=== PATIENT | male | born 1955 | race Caucasian/White ===

== ENCOUNTER 2023-09-26 10:55 | Inpatient (IN) ==
[2023-09-26 11:47] LABS: Basophils # (auto) 0.01 K/uL (0.00-0.20); Basophils % (auto) 0.1 %; Eosinophils # (auto) 0.01 K/uL (0.00-0.50); Eosinophils % (auto) 0.1 %; Hematocrit (blood only) 41.5 % (42.0-52.0); Hemoglobin 13.9 g/dl (14.0-18.0); Immature Granulocytes # (auto) 0.05 K/uL (0.01-0.20); Immature Granulocytes % (auto) 0.4 %; Lymphocytes # (auto) 0.59 K/uL (1.20-3.40); Lymphocytes % (auto) 4.8 %; Mean Corpuscular Hemoglobin 29.4 pg (25.0-34.0); Mean Corpuscular Hgb Conc 33.5 g/dL (32.0-36.0); Mean Corpuscular Volume 87.9 fL (80.0-100.0); Mean Platelet Volume 9.9 fL (9.4-12.4); Monocytes # (auto) 0.85 K/uL (0.11-0.59); Monocytes % (auto) 6.9 %; Neutrophils # (auto) 10.73 K/uL (1.40-6.50); Neutrophils % (auto) 87.7 %; Platelet Count 274 K/uL (130-400); RDW Coefficient of Variation 13.7 % (11.5-14.5); Red Blood Count 4.72 M/uL (4.70-6.10); White Blood Count 12.24 K/ul (4.8-10.8)
--- NOTE | 2023-09-26 12:00 | XRay Report ---
XR chest 1V not portable HISTORY: Chest pain, nonspecific COMPARISON: Chest 09/24/2023. FINDINGS: No pneumothorax. No pleural effusions. The heart remains top normal in size. The left lung is clear. Elevated right hemidiaphragm and right basilar linear densities persist. This favors subseg mental atelectasis. No new focal lung consolidations to suggest a pneumonia. No evidence for pulmonar y edema. No acute fractures. IMPRESSION: No significant change compared to the prior study. No acute process. ACT 112: Negative or not required by law. Electronically signed by: Jarrett Bustos M.D. 09/26/2023 11:59 AM
[2023-09-26 12:11] LABS: Partial Thromboplastin Time 27 Seconds (21-31); Prothrombin Time 10.7 Seconds (9.0-12.0)
[2023-09-26 12:28] LABS: Albumin Level 4.4 gm/dl (3.4-5.0); Calcium 9.8 mg/dl (8.6-10.3); Potassium 4.2 mmol/L (3.5-5.1); Troponin I High Sensitivity 11.9 pg/ml (0-20)
[2023-09-26 12:39] LABS: Albumin Globulin Ratio 1.2 (0.9-2); BUN Creatinine Ratio 17.8 (10-20); Creatinine Clr Calc Pharmacy 31.1 ml/min; Est GFR (African American) 37.6 ml/min; Est GFR (Non-African American) 32.4 ml/min; Globulin 3.7 gm/dl (2.5-4.0); Total Protein 8.1 gm/dl (6.0-8.3)
--- NOTE | 2023-09-26 13:25 | Emergency Department Note ---
Impression & Plan RSV (respiratory syncytial virus infection), Chronic kidney disease, stage III (moderate), Hyponatremia, Cough ED Provider Note Provider: Stan Owens MD DATE OF SERVICE: 09/26/2023 CHIEF COMPLAINT: Worsening cough and breathing HISTORY OF PRESENT ILLNESS: Patient is a 68-year-old gentleman history of hyperlipidemia, CKD, and hypertension presenting here today with son reporting worsening cough and breathing over the last several days. Initially became ill over the weekend. Seen here on Monday given steroids and breathing treatment and diagnosed with RSV. Was having improvement. Reporting some pain around his belly with coughing. Some nasal congestion and drainage. Short of breath particular when ambulating or talking for a period. No swelling reported. And does not have any inhalers at home. Worsening over the last day. Denies nausea vomiting. Denies fever. Only able to sleep a couple hours last night due to hacking cough. Using some Mucinex as well as other [id number]'s including acetaminophen. Has been trying to drink some. Follows with nephrology. PAST MEDICAL HISTORY: As noted above MEDICATIONS: Reviewed home medications SOCIAL HISTORY: Non-smoker PHYSICAL EXAM: GENERAL: alert and oriented in no acute distress in chair coughing, some adjacent Head: normocephalic and atraumatic EYES: No injection, discharge or icterus. NECK: Trachea midline. Supple. ENT: Mucous membranes pink and moist. LUNGS: Airway patent. No retractions. Breath sounds scattered wheezes, occasionally coughing HEART: Regular rate and rhythm. No chest wall tenderness ABDOMEN: Soft and non-tender, without guarding or rebound. SKIN: Acyanotic, warm, dry, without rashes EXTREMITIES: Without swelling, tenderness or deformity NEUROLOGICAL: No focal deficits. No aphasia. No facial droop or slurred speech. Ambulatory. EK bpm normal sinus rhythm. No PVC or PAC. No acute ST segment elevation or depression with a QTc of 420. Nonspecific slight ST change CONTINUOUS CARDIAC MONITORING: was ordered and showed a heart rate of 60s-80s bpm in normal sinus rhythm Patient's laboratory studies and imaging reviewed. Differential includes Reactive airway disease, pneumonia, pneumothorax, COPD, CHF, infections, cardiac ischemia, pulmonary embolism, musculoskeletal, gastrointestinal, as well as other pathologies. IMPRESSION/MEDICAL DECISION MAKING: Patient diagnosed with RSV with some worsening symptoms. Chest x-ray without evidence of pneumonia. Leukocytosis slightly increased to 12.2 likely more reactive to steroids than pneumonia. Worsening hyponatremia 125 this new today as well as slight anion gap and a creatinine of 2 and a BUN of 36. Question some component of dehydration. Troponin also increased to 11.9 from the 6.5 the other day is still within the normal range. Doubt this represents ACS. EKG reviewed. Doubt PE. Not severely hypoxic. Significant cough and some pressured speech having difficulty completing sentences due to his cough and breathing however. Wheezy. Given DuoNeb. Additional steroids. Will give the Hycodan to help with cough. Doubt PHD INTERN or meningitis. Doubt strep pharyngitis. Believe likely viral illness. Doubt this represents CHF. Discussed with the patient given his worsening with worsening chemistries/renal function/hyponatremia would recommend that we observe him rather than just discharged with an inhaler and a course of steroids. Discussion with him and his son he wished to stay for further evaluation. DIAGNOSIS: RSV, cough, hyponatremia DISPOSITION: Hospitalist will evaluate Patient was agreeable with this plan. Past Med/Surg History Medical History Tricuspid regurgitation Aortic stenosis, moderate Overweight (BMI 25.0-29.9) Visual impairment Hypertension Sleep apnea Surgical History History of cataract surgery Hx of eye surgery Hx of vitrectomy History of tooth extraction Family History Other No significant family history Social History Smoking Status: Never smoker Second Hand Exposure: No; Do You Dip or Chew Tobacco: No; Hx Alcohol Use: No Hx Substance Use: No Preferred Language: Amharic Communication Ability: Effective Communication Ability Comment: some visual impairment Visual Impairment: Limited Hearing Ability: Normal Manager Process Required: No Beliefs That Will Affect Care: None marital status: Current Living Situation: Alone current occupational status: retired Feels Safe at Home: Yes Diet: regular caffeine: Yes (2-3 cups coffee daily) Do you think of yourself as: straight/heterosexual Gender Identity: Male Assistive Devices: Glasses Allergies Allergies Allergy/AdvReac Type Severity Reaction Status Date / Time No Known Allergies Allergy Verified 09/24/23 19:02 Home Meds Home Medications Medication Instructions Recorded Confirmed olmesartan 40 mg tablet 40 mg PO QAM 03/04/21 09/24/23 spironolactone 25 mg tablet 25 mg PO BID 03/04/21 09/24/23 coenzyme Q10 200 mg capsule 200 mg PO QAM 11/23/21 09/24/23 pravastatin 20 mg tablet 40 mg PO HS 01/13/23 09/24/23 ezetimibe 10 mg tablet 10 mg PO DAILY 09/24/23 09/24/23 pantoprazole 40 mg tablet,delayed 40 mg PO BID 09/24/23 09/24/23 release Previous Rx's Medication Instructions Recorded furosemide 20 mg tablet 20 mg PO QAM #90 tabs 04/04/22 nifedipine 60 mg tablet,extended 60 mg PO DAILY #90 tabs 01/13/23 release cholecalciferol (vitamin D3) 25 25 mcg PO QAM #90 caps 02/21/23 mcg (1,000 unit) capsule Results & Data (ED) Vital Signs Vital Signs - 24 hr 09/26/23 10:59 09/26/23 13:33 09/26/23 14:14 Temperature 36.5 C Temperature Source Temporal Artery Scan Pulse Rate 90 Pulse Rate [Right Finger] 68 105 H Pulse Rhythm Regular Pulse Rhythm [Right Finger] Regular Pulse Strength Normal Pulse Strength [Right Finger] Normal Respiratory Rate 22 18 22 Respiratory Effort / Characteristics Non-Labored Spontaneous Non-Labored Respiratory Depth Normal Normal Respiratory Pattern Regular Blood Pressure 159/75 H Blood Pressure [Left Arm] 137/68 Blood Pressure Mean 103 Blood Pressure Mean [Left Arm] 91 Blood Pressure Position Sitting Pulse Oximetry 96 93 99 Oxygen Delivery Method Room Air Room Air Aerosol Mask Sepsis Recent Fever Within 48 Hours No Sepsis New/Unexplained Change in Mental Status No Sepsis Action Taken by Nursing No Action Required 09/26/23 14:29 Temperature Temperature Source Pulse Rate 107 H Pulse Rate [Right Finger] Pulse Rhythm Pulse Rhythm [Right Finger] Pulse Strength Pulse Strength [Right Finger] Respiratory Rate Respiratory Effort / Characteristics Respiratory Depth Respiratory Pattern Blood Pressure Blood Pressure [Left Arm] Blood Pressure Mean Blood Pressure Mean [Left Arm] Blood Pressure Position Pulse Oximetry Oxygen Delivery Method Sepsis Recent Fever Within 48 Hours Sepsis New/Unexplained Change in Mental Status Sepsis Action Taken by Nursing Laboratory Data 09/26/23 11:12 09/26/23 11:12 Lab Results 09/26/23 Range/Units 11:12 WBC 12.24 H (4.8-10.8) K/ul RBC 4.72 (4.70-6.10) M/uL Hgb 13.9 L (14.0-18.0) g/dl Hct 41.5 L (42.0-52.0) % MCV 87.9 (80.0-100.0) fL MCH 29.4 (25.0-34.0) pg MCHC 33.5 (32.0-36.0) g/dL RDW Std Deviation 44.0 (36.4-46.3) fL RDW Coeff of Anju 13.7 (11.5-14.5) % Plt Count 274 (130-400) K/uL MPV 9.9 (9.4-12.4) fL Immature Gran % (Auto) 0.4 % Neut % (Auto) 87.7 % Lymph % (Auto) 4.8 % Spencer % (Auto) 6.9 % Eos % (Auto) 0.1 % Baso % (Auto) 0.1 % Neut # (Auto) 10.73 H (1.40-6.50) K/uL Lymph # (Auto) 0.59 L (1.20-3.40) K/uL Spencer # (Auto) 0.85 H (0.11-0.59) K/uL Eos # (Auto) 0.01 (0.00-0.50) K/uL Baso # (Auto) 0.01 (0.00-0.20) K/uL Immature Gran # (Auto) 0.05 (0.01-0.20) K/uL PT 10.7 (9.0-12.0) Seconds INR 1.0 (0.9-1.1) APTT 27 (21-31) Seconds PTT Ratio 1.0 Sodium 125 L (136-145) mmol/L Potassium 4.2 (3.5-5.1) mmol/L Chloride 91 L (98-107) mmol/L Carbon Dioxide 19 L (21-32) mmol/L Anion Gap 15 H (3-11) BUN 36 H D (6-23) mg/dl Creatinine 2.02 H D (0.6-1.4) mg/dl Est Cr Clr Drug Dosing 31.1 ml/min Est GFR ( Amer) 37.6 ml/min Est GFR (Non-Af Amer) 32.4 ml/min BUN/Creatinine Ratio 17.8 (10-20) Glucose 96 (70-99(Fasting)) mg/dl Calcium 9.8 (8.6-10.3) mg/dl Total Bilirubin 1.0 (0.2-1.0) mg/dl AST 137 H (13-39) U/L ALT 47 (7-52) U/L Alkaline Phosphatase 66 (34-104) U/L Troponin I High Sens 11.9 D (0-20) pg/ml Total Protein 8.1 (6.0-8.3) gm/dl Albumin 4.4 (3.4-5.0) gm/dl Globulin 3.7 (2.5-4.0) gm/dl Albumin/Globulin Ratio 1.2 (0.9-2) Administered Medications Sodium Chloride (Nss) 1,000 mls @ 999 mls/hr IV .Q1H1M ONE Stop: 09/26/23 14:19 Last Admin: 09/26/23 14:11 Dose: 999 mls/hr Documented By: [facility] Discontinued Medications Albuterol (Albut/Ipratrop 3mg/0.5mg Neb 3 Ml Vial) 12 ml NEB ONE ONE; Protocol Stop: 09/26/23 13:20 Last Admin: 09/26/23 13:32 Dose: 12 ml Documented By: [facility] Hydrocodone Bit/Homatropine Methylb (Hydrocodone/Homatropine Syrup 5mg/1.5mg 5ml Udp) 5 ml PO NOW STA Stop: 09/26/23 13:20 Last Admin: 09/26/23 14:12 Dose: 5 ml Documented By: [facility] Methylprednisolone (Methylprednisolone 125 Mg/2 Ml Vial) 60 mg IV NOW STA Stop: 09/26/23 13:20 Last Admin: 09/26/23 14:11 Dose: 60 mg Documented By: [facility] Imaging Data Radiologist's Impression: Chest X-Ray 09/26/23 11:02 XR chest 1V not portable HISTORY: Chest pain, nonspecific COMPARISON: Chest 09/24/2023. FINDINGS: No pneumothorax. No pleural effusions. The heart remains top normal in size. The left lung is clear. Elevated right hemidiaphragm and right basilar linear densities persist. This favors subsegmental atelectasis. No new focal lung consolidations to suggest a pneumonia. No evidence for pulmonary edema. No acute fractures. IMPRESSION: No significant change compared to the prior study. No acute process. ACT 112: Negative or not required by law. Electronically signed by: Jarrett Bustos M.D. 09/26/2023 11:59 AM Discharge Plan Visit Data Chief Complaint: Referred by Doctor Stated Complaint: respiratory problems ref by doc ED Provider: Stna Owens Discharge Problem: RSV (respiratory syncytial virus infection), Chronic kidney disease, stage III (moderate), Hyponatremia, Cough Patient Disposition: Being Evaluated by Hospitalist Condition: Fair Forms Stand Alone Forms: My [employer] Prescriptions Prescriptions: No Action furosemide 20 mg tablet 20 mg PO QAM Qty: 90 3RF cholecalciferol (vitamin D3) 25 mcg (1,000 unit) capsule 25 mcg PO QAM Qty: 90 3RF nifedipine 60 mg tablet extended release 60 mg PO DAILY Qty: 90 3RF olmesartan 40 mg tablet 40 mg PO QAM spironolactone 25 mg tablet 25 mg PO BID pravastatin 20 mg tablet 40 mg PO HS coenzyme Q10 200 mg capsule 200 mg PO QAM pantoprazole 40 mg tablet,delayed release (DR/EC) 40 mg PO BID ezetimibe 10 mg tablet 10 mg PO DAILY Referrals Referrals: PCP,NO [Physician] -
[2023-09-26] MEDS: ALBUT/IPRATROP 3MG/0.5MG NEB 3 ML VIAL NEB ONE (13:32)
[2023-09-26] MEDS: methylPREDNISolone 125 MG/2 ML VIAL IV STA (14:11)
[2023-09-26] MEDS: SODIUM CHLORIDE 0.9% 1,000 ML IV ONE (14:11)
[2023-09-26] MEDS: HYDROcodone/HOMATROPINE SYRUP 5MG/1.5MG 5ML UDP PO STA (14:12)
--- NOTE | 2023-09-26 14:19 | History & Physical Report ---
Date of Service September 26, 2023 Assessment & Plan (1) Reactive airway disease: Plan: -Admit to med/surge on pulse oximetry -Currently hemodynamically stable and stable on RA but with mild respiratory distress and significant wheezing -Presented to the ED for progressive cough, wheezing, and SOB with exertion since testing positive for RSV in our ED on 09/24 -CXR today is negative for acute findings -Noted to have significant cough and expiratory wheezing on exam -Denies previous hx of Asthma or COPD, was a previous smoker approximately 30 years ago -S/P 60 mg IV methylprednisolone, hour long duoneb, and dose of hycoden in the ED -Will start QIDr DuoNebs, continue 40 mg IV Solu-Medrol TID for now, incentive spirometry, flutter therapy -Will obtain mag level, if stable will give 2gm IV mag sulfate -PRN O2 to keep SpO2 between 92-94% -SQ Heparin for DVT PPX -HH diet, free water restriction until sodium is stable -AM CBC, CMP (2) RSV (respiratory syncytial virus infection): Plan: -See reactive airway disease (3) High anion gap metabolic acidosis: Plan: -AG elevated at 15 with bicarb of 19 -Noted to be dehydrated on exam but otherwise stable -Denies recent alcohol use -Will obtain stat lactate level -Will monitor q4h BMP x 2 over the rest of the day -Will wait to aggressively fluid resuscitate until his hyponatremia workup is back as he is otherwise stable (4) Hyponatremia: Plan: -Sodium noted to be 125 on arrival -Baseline is usually in the low-mid 130's -Likely due to dehydration and continued diuretic use during acute illness -Cannot rule out intrinsic cause at this time -S/P 1L NSS in the ED -Will follow workup started in the ED and repeat BMP's -Will continue IV hydration if workup necessitates -Monitor am renal function and electrolytes -Hold diuretics for now (5) Acute kidney injury superimposed on CKD: Plan: -Cr of 2.0 today, baseline is 1.7-1.8 -Likely due to dehydration and recent NSAID use but cannot rule out obstruction with his recent hx of obstruction -Will obtain bladder scan on admission -If renal function is not improving on repeat BMP will obtain renal US -S/P 1L NSS in the (6) Hypertension: Plan: -Stable -Hold Olmesartan, lasix, and lasix for now with dehydration and WILFREDO -Continue Nifedipine (7) Sleep apnea: Plan: -Patient reportedly has not used his CPAP machine in years -Monitor for HS hypoxia -PRN O2 ordered Plan The patient was discussed with Dr. Torres at the time of the admission History of Present Illness Chief Complaint: Cough, SOB Primary Care Provider: Harish Retana DO Joe is a 68 year old male with a PMH significant for HTN, stage 3 CKD, chronic hyponatremia, aortic stenosis, and GERD who presented to the [facility] ED on 09/26/23 for progressive cough and SOB. He remained stable in the ED. Labs were significant for a leukocytosis of 12 with neutrophil predominance of 10, lymphocyte count of 0.59, Cr of 2.0 (baseline is near 1.5-1.7), BUN of 36, AG of 15 with bicarb of 19, chloride of 91, sodium of 125 (normally in the low-mid 130's), AST of 137. The patient was seen in the [facility] ED on 09/24 for respiratory symptoms and tested positive for RSV. His labs and imaging were WNL and he was discharged home. CXR was stable and without acute findings compared to last on 09/24. Prior to admission the patient was given an hour long albuterol treatment, 60 mg IV methylprednisolone, and 1L NSS. At the time of the exam the patient was sitting in bed in mild distress due to his severe cough with his son sitting bedside, history was obtained from both. They confirm that he was seen in the [facility] ED for his respiratory symptoms on 09/24 and tested positive for RSV. He states that the breathing treatment he received in the ED helped at that time but he was not discharged with any breathing treatments. He was using OTC Guaifenesin, Tylenol, and Ibuprofen for his symptoms at home without relief. He has had poor oral intake over the past 48 hours since his symptoms began but has still been taking his prescription medications including lasix and spironolactone as prescribed. He denies recent chest pain, SOB and rest, hemoptysis, abd pain, nausea, vomiting, diarrhea, dysuria, hematuria, LE swelling, and recent trauma. He states that his prescription for Flomax ran out recently so he has been having increased urinary frequency. He is a full code and would want his son to make medical decisions for him if he cannot make them himself. Please refer to Dr. Torres's attestation for any changes to the treatment plan Allergies Allergy/AdvReac Type Severity Reaction Status Date / Time No Known Allergies Allergy Verified 09/24/23 19:02 Home Medications Medication Instructions Recorded Confirmed Type olmesartan 40 mg tablet 40 mg PO QAM 03/04/21 09/26/23 History spironolactone 25 mg tablet 25 mg PO BID 03/04/21 09/26/23 History coenzyme Q10 200 mg capsule 200 mg PO QAM 11/23/21 09/26/23 History furosemide 20 mg tablet 20 mg PO QAM #90 tabs 04/04/22 09/26/23 Rx nifedipine 60 mg tablet,extended 60 mg PO DAILY #90 tabs 01/13/23 09/26/23 Rx release cholecalciferol (vitamin D3) 25 25 mcg PO QAM #90 caps 02/21/23 09/26/23 Rx mcg (1,000 unit) capsule pantoprazole 40 mg tablet,delayed 40 mg PO BID 09/24/23 09/26/23 History release pravastatin 40 mg tablet 40 mg PO HS 09/26/23 09/26/23 History Past Med/Surg History Medical History (Updated 09/26/23 @ 14:57 by Eric Gasca PA-C) Tricuspid regurgitation Aortic stenosis, moderate KMI 1.4 cm2 01/06/20 - follows [facility] - 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 Overweight (BMI 25.0-29.9) Visual impairment "BLACK HOLE RT EYE" Hypertension Sleep apnea hasn't used CPAP for year Surgical History History of cataract surgery right Hx of eye surgery right eye black hole Hx of vitrectomy left History of tooth extraction Family History Other No significant family history Social History Smoking Status: Never smoker Second Hand Exposure: No; Do You Dip or Chew Tobacco: No; Hx Alcohol Use: No Hx Substance Use: No Preferred Language: Greek Communication Ability: Effective Communication Ability Comment: some visual impairment Visual Impairment: Limited Hearing Ability: Normal 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 Arts Required: No Beliefs That Will Affect Care: None marital status: Current Living Situation: Alone current occupational status: retired Feels Safe at Home: Yes Diet: regular caffeine: Yes (2-3 cups coffee daily) Do you think of yourself as: straight/heterosexual Gender Identity: Male Assistive Devices: Glasses Physical Exam Physical Exam: Physical Exam: General: In mild distress due to cough, stated age, ill appearing but non- toxic HEENT: Normocephalic, atraumatic, no scleral icterus, pupils around round, symmetrical, and reactive to light, dry mucus membranes, trachea midline, no thyromegaly Chest/Pulm: mild respiratory distress due to significant cough and wheezing, symmetrical chest expansion, expiratory wheezing noted throughout Cardiac: RRR, no murmurs noted Abdomen: Negative for ascites and bruising, normoactive bowel sounds, soft, non-tender to palpation throughout Musculoskeletal: Symmetrical and without signs of acute trauma, upper and lower extremities with full ROM, no atrophy, spasticity, or flaccidity Extremities: Radial, dorsalis pedis, and posterior tibial pulses are intact and symmetrical, no edema noted in the BL LE's Skin: Warm, dry, no rashes , lesions, or scars noted Neuro: Alert and oriented to person, place, month, year, and president, no focal defects, no tremors noted Psych: mild distress due to respiratory symptoms but otherwise calm and cooperative during the exam Results & Data Results & Data Vital Signs (Past 12 Hours) Vital Signs Temp Pulse Pulse Resp BP Pulse Ox O2 Del Method 09/26/23 13:33 68 18 93 Room Air 09/26/23 10:59 36.5 C 90 22 159/75 H 96 Room Air Laboratory Results Abnormal lab results 09/26/23 Range/Units 11:12 WBC 12.24 H (4.8-10.8) K/ul Hgb 13.9 L (14.0-18.0) g/dl Hct 41.5 L (42.0-52.0) % Neut # (Auto) 10.73 H (1.40-6.50) K/uL Lymph # (Auto) 0.59 L (1.20-3.40) K/uL Robertson # (Auto) 0.85 H (0.11-0.59) K/uL Sodium 125 L (136-145) mmol/L Chloride 91 L (98-107) mmol/L Carbon Dioxide 19 L (21-32) mmol/L Anion Gap 15 H (3-11) BUN 36 H D (6-23) mg/dl Creatinine 2.02 H D (0.6-1.4) mg/dl AST 137 H (13-39) U/L Diagnostic Findings Chest X-Ray 09/26/23 11:02 XR chest 1V not portable HISTORY: Chest pain, nonspecific COMPARISON: Chest 09/24/2023. FINDINGS: No pneumothorax. No pleural effusions. The heart remains top normal in size. The left lung is clear. Elevated right hemidiaphragm and right basilar linear densities persist. This favors subsegmental atelectasis. No new focal lung consolidations to suggest a pneumonia. No evidence for pulmonary edema. No acute fractures. IMPRESSION: No significant change compared to the prior study. No acute process. ACT 112: Negative or not required by law. Electronically signed by: Jarrett Bustos M.D. 09/26/2023 11:59 AM ECG Additional Comments: Normal sinus rhythm Nonspecific ST abnormality Abnormal ECG When compared with ECG of 24-SEP-2023 15:25, No significant change was found Confirmed by Chiki Gee ([id number]) on 09/26/2023 11:20:18 AM Code Status & VTE Plan Code Status Full code VTE Prophylaxis Plan VTE Prophylaxis will be ordered: Yes Supervising Physician Co-Signing Physician Notes Patient seen and examined, chart reviewed, case discussed with Eric Gasca PA-C and I agree with the assessment and plan as above except as otherwise noted Labs and images reviewed 68-year-old male with past medical history of CKD, chronic hyponatremia, aortic stenosis, GERD who presents with cough, shortness of breath, and bilateral lower rib pain from continuous coughing. He was recently positive for RSV. Patient reports he has had significant shortness of breath and wheezing since returning home, breathing treatment in the ER did help initially but shortness of breath and wheezing have returned and worsened. He is seen at bedside and has diffuse expiratory wheezing and coarse lung sounds. Chest x-ray does not show any acute findings and specifically no findings of superimposed lobar pneumonia. Patient is improving following nebulizer and steroids. Agree with treatment as above. Patient was volume contracted appearing with an WILFREDO and tachycardia on admitting assessment. Lactate ordered and was elevated at 3.2. Patient has a history of EF 65% with grade 1 diastolic dysfunction; does not show signs of overt fluid overload at time of admitting assessment. Additional 1000 cc bolus ordered due to elevated lactate, 1600 cc 30 cc/kg met. REpeat lactate is pending. Hypertonic saline added. 2g mag added. Agree with assessment and management above PG Care Time/CCT Total # of Minutes Spent Total Time Spent with Patient: Total time spent is greater than 50% in coordination of care (as documented) at patient's floor/unit and/or counseling patient: C[place] [address] INT INP/OBS CARE 3/75MIN Patient Type Established Medical Decision Making High Complexity Diagnoses Reactive airway disease J45.909 RSV (respiratory syncytial virus infection) B33.8 High anion gap metabolic acidosis E87.29 Hyponatremia E87.1 Acute kidney injury superimposed on CKD N17.9; N18.9 Hypertension I10 Sleep apnea G47.30
[2023-09-26] MEDS: guaiFENesin 600 MG TABCR PO SCH (14:57)
[2023-09-26] MEDS: ALBUT/IPRATROP 3MG/0.5MG NEB 3 ML VIAL NEB SCH (14:57)
[2023-09-26] MEDS: PANTOprazole 40 MG TAB PO STA (14:58)
[2023-09-26 15:39] LABS: Magnesium 1.8 mg/dl (1.7-2.4)
[2023-09-26] MEDS: LACTATED RINGER'S 1,000 ML IV ONE (16:38)
[2023-09-26 17:08] LABS: Appearance Urine Clear (Clear); Bilirubin Urine Negative (Negative); Blood Urine Negative (Negative); Color Urine Yellow; Glucose Urine UA Negative (Negative); Ketones Urine Negative (Negative); Leukocyte Esterase Urine Negative (Negative); Nitrite Urine Negative (Negative); Protein Urine Negative (Negative); Specific Gravity Urine 1.008 (1.000-1.030); Urobilinogen Urine Negative (Negative)
[2023-09-26] MEDS: MAGNESIUM SULFATE / D5W 1 GM/100 ML BAG IV SCH (17:19)
[2023-09-26] MEDS: SODIUM CHLOR 7% 4 ML NEB NEB SCH (18:08)
[2023-09-26 18:28] LABS: BUN Creatinine Ratio 19.1 (10-20); Creatinine Clr Calc Pharmacy 33.4 ml/min; Est GFR (Non-African American) 35.4 ml/min; Potassium 4.4 mmol/L (3.5-5.1)
[2023-09-26 18:43] LABS: Thyroid Stimulating Hormone 3.612 uIu/ml (0.300-4.500)
[2023-09-26] MEDS ORDERED: SODIUM CHLOR 7% 4 ML NEB NEB SCH (19:00)
[2023-09-26] MEDS: SODIUM CHLORIDE 0.9% 1,000 ML IV SCH (19:19)
[2023-09-26] MEDS: PRAVASTATIN SOD 40 MG TAB PO SCH (21:33)
[2023-09-26] MEDS: TAMSULOSIN HCL 0.4 MG CAP PO SCH (21:33)
[2023-09-26] MEDS: PANTOprazole 40 MG TAB PO SCH (21:33)
[2023-09-26] MEDS: HEPARIN SOD 5,000 UNIT/0.5 ML VIAL SQ SCH (21:33)
[2023-09-26 21:42] LABS: Potassium 3.9 mmol/L (3.5-5.1)
[2023-09-26 21:48] LABS: Creatinine Clr Calc Pharmacy 35.1 ml/min; Est GFR (African American) 43.5 ml/min; Est GFR (Non-African American) 37.6 ml/min
[2023-09-27 07:06] LABS: Hematocrit (blood only) 36.7 % (42.0-52.0); Hemoglobin 12.7 g/dl (14.0-18.0); Mean Corpuscular Hemoglobin 30.2 pg (25.0-34.0); Mean Corpuscular Hgb Conc 34.6 g/dL (32.0-36.0); Mean Corpuscular Volume 87.4 fL (80.0-100.0); Mean Platelet Volume 9.5 fL (9.4-12.4); Platelet Count 211 K/uL (130-400); RDW Coefficient of Variation 13.6 % (11.5-14.5); RDW Standard Deviation 43.7 fL (36.4-46.3); White Blood Count 11.87 K/ul (4.8-10.8)
[2023-09-27 07:28] LABS: Immature Granulocytes # (auto) 0.08 K/uL (0.01-0.20); Immature Granulocytes % (auto) 0.7 %; Lymphocytes # (auto) 0.42 K/uL (1.20-3.40); Lymphocytes % (auto) 3.5 %; Monocytes # (auto) 0.63 K/uL (0.11-0.59); Monocytes % (auto) 5.3 %; Neutrophils # (auto) 10.74 K/uL (1.40-6.50); Neutrophils % (auto) 90.5 %
[2023-09-27 07:35] LABS: Albumin Globulin Ratio 1.4 (0.9-2); Albumin Level 4.1 gm/dl (3.4-5.0); BUN Creatinine Ratio 19.3 (10-20); Bilirubin,Total 0.6 mg/dl (0.2-1.0); Calcium 9.2 mg/dl (8.6-10.3); Creatinine Clr Calc Pharmacy 46.6 ml/min; Est GFR (African American) 61.2 ml/min; Est GFR (Non-African American) 52.8 ml/min; Magnesium 2.6 mg/dl (1.7-2.4); Potassium 4.2 mmol/L (3.5-5.1); Total Protein 7.1 gm/dl (6.0-8.3)
[2023-09-27] MEDS: methylPREDNISolone 40 MG in SYRINGE 0 ML IV SCH ×2 (09:33→20:39)
[2023-09-27] MEDS: NIFEdipine EXTENDED REL 30 MG TABCR PO SCH (11:04)
--- NOTE | 2023-09-27 11:46 | Hospitalist Progress Note ---
Date of Service September 27, 2023 Assessment & Plan (1) Reactive airway disease: Plan: Presented w/ progressive cough, wheezing, and SOB with exertion since testing positive for RSV in our ED on 09/24 CXR negative for acute findings but does show chronic significant right hemidiaphragm elevation, no pneumonia Denies previous hx of Asthma or COPD, was a previous smoker approximately 30 years ago Improving but with ongoing wheezing and acute hypoxic respiratory failure-weaned to 2 L nasal cannula Continue IV methylprednisolone but reduce to 40 Mg IV every 12h Continue QID DuoNebs, incentive spirometry, flutter therapy Isolation precautions in place No antibiotics necessary Continue cough syrup and guaifenesin (2) RSV (respiratory syncytial virus infection): Plan: As above (3) Transaminitis: Plan: AST elevated on admission at 137 and improved today to 97 Other LFTs are normal Could be from viral infection versus rhabdo? Check CK Improving (4) High anion gap metabolic acidosis: Plan: -AG elevated at 15 with bicarb of 19 on admission, dehydrated, lactate persistently elevated likely due to hypoxia and perhaps some from dehydration Resolved now after IV fluids Discontinue IV fluids (5) Hyponatremia: Plan: -Sodium noted to be 125 on arrival -Baseline is usually in the low-mid 130's -Likely due to dehydration and continued diuretic use during acute illness Resolved now with IV fluids with normal saline and holding home diuretics DC IV fluids Follow BMP (6) Acute kidney injury superimposed on CKD: Plan: Cr of 2.0 on arrival, baseline is 1.7-1.8 Likely due to dehydration and recent NSAID use but cannot rule out obstruction with his history of enlarged prostate Now improved with IV fluids, creatinine down to 1.3 Started Flomax-needs a prescription on discharge Monitor I's and O's, BMP Continue holding olmesartan, Lasix, and spironolactone (7) Hypertension: Plan: Blood pressures are controlled Continue to hold Olmesartan, lasix, and Spironolactone due to dehydration and WILFREDO -Continue Nifedipine (8) Sleep apnea: Plan: -Patient reportedly has not used his CPAP machine in years -Monitor for HS hypoxia -PRN O2 ordered (9) Aortic stenosis, moderate: Plan: Noted (10) Dysfunctional voiding of urine: Plan: Started Flomax again which she has been without for a year and a half Need prescription at discharge Plan DVT prophylaxis-heparin SQ Disposition-continued stay Admission and Anticipated Discharge Date Admission Date: September 26, 2023 Subjective Patient reports still with a cough and wheezing, I weaned him to 2 L nasal cannula in the room and his pulse ox was 91-92% No diarrhea or constipation, no abdominal pains. He just ate all of his lunch. He complains of urinary frequency for the last year since he was not continued on Flomax by urology after he declined to have a cystoscopy. I reassured him that we restarted it here for him and he was happy about that. Telemetry with sinus tachycardia in the low 100s Physical Exam Constitutional: WD/WN, vitals as above Respiratory: normal respiratory effort and + cough Auscultation: + wheezes (Expiratory on the right side); no crackles and no rhonchi Cardiovascular: Rate/Rhythm: regular rhythm and + tachycardic (Mild) Heart Sounds: + murmur (+ 1/6 SABINO at the RUSB) Extremities: no edema Gastrointestinal (Abdomen): normal bowel sounds, soft, nontender, no hepatosplenomegaly Psychiatric: A+Ox3, euthymic affect Results & Data Results & Data Vital Signs (Past 12 Hours) Vital Signs Pulse Pulse Resp BP BP Pulse Ox O2 Del Method 09/27/23 11:17 95 H 20 93 Nasal Cannula 09/27/23 07:48 85 09/27/23 07:01 86 20 94 Nasal Cannula 09/27/23 05:00 98 H 16 95 09/27/23 04:50 89 19 94 09/27/23 04:40 88 19 95 09/27/23 04:30 94 H 20 93 09/27/23 04:20 97 H 20 93 09/27/23 04:10 107 H 23 93 09/27/23 04:06 106 H 20 09/27/23 03:50 98 H 22 95 09/27/23 03:40 84 20 94 09/27/23 03:30 83 20 95 09/27/23 03:20 86 21 93 09/27/23 03:10 92 H 20 93 09/27/23 03:00 91 H 20 95 09/27/23 02:50 95 H 20 93 09/27/23 02:40 110 H 21 94 09/27/23 02:30 126/71 09/27/23 02:30 98 H 18 93 02/21/24 02:20 93 H 20 95 09/27/23 02:10 96 H 21 94 09/27/23 02:00 131/71 09/27/23 02:00 98 H 24 92 09/27/23 01:50 93 H 21 92 09/27/23 01:40 98 H 23 93 09/27/23 01:31 108 H 25 H 91 09/27/23 01:20 96 H 19 92 09/27/23 01:10 103 H 20 92 09/27/23 01:00 99 H 23 94 09/27/23 01:00 128/78 09/27/23 00:50 106 H 25 H 95 09/27/23 00:40 98 H 22 93 09/27/23 00:30 100 H 18 92 09/27/23 00:30 139/86 09/27/23 00:20 104 H 22 92 09/27/23 00:10 103 H 22 94 09/27/23 00:06 107 H 24 95 09/27/23 00:06 152/83 H 09/27/23 00:04 94 09/27/23 00:00 108 H 18 152/83 H 95 Nasal Cannula 09/26/23 23:50 89 L 09/26/23 23:40 90 O2 Flow Rate 09/27/23 11:17 3 09/27/23 07:48 09/27/23 07:01 3 09/27/23 05:00 09/27/23 04:50 09/27/23 04:40 09/27/23 04:30 09/27/23 04:20 09/27/23 04:10 09/27/23 04:06 09/27/23 03:50 09/27/23 03:40 09/27/23 03:30 09/27/23 03:20 09/27/23 03:10 09/27/23 03:00 09/27/23 02:50 09/27/23 02:40 09/27/23 02:30 09/27/23 02:30 09/27/23 02:20 09/27/23 02:10 09/27/23 02:00 09/27/23 02:00 09/27/23 01:50 09/27/23 01:40 09/27/23 01:31 09/27/23 01:20 09/27/23 01:10 09/27/23 01:00 09/27/23 01:00 09/27/23 00:50 09/27/23 00:40 09/27/23 00:30 09/27/23 00:30 09/27/23 00:20 09/27/23 00:10 09/27/23 00:06 09/27/23 00:06 09/27/23 00:04 09/27/23 00:00 4 09/26/23 23:50 09/26/23 23:40 Laboratory Results CBC, CMP, TSH, urinalysis, lactate all reviewed Diagnostic Findings Chest x-ray image reviewed PG Care Time/CCT Total # of Minutes Spent Total Time Spent with Patient: Total time spent is greater than 50% in coordination of care (as documented) at patient's floor/unit and/or counseling patient: Coding Level of Care Code 24265 SUB INP/OBS CARE 2/35MIN Diagnoses Reactive airway disease J45.909 RSV (respiratory syncytial virus infection) B33.8 Transaminitis R74.01 High anion gap metabolic acidosis E87.29 Hyponatremia E87.1 Acute kidney injury superimposed on CKD N17.9; N18.9 Hypertension I10 Sleep apnea G47.30 Aortic stenosis, moderate I35.0 Dysfunctional voiding of urine N39.8
[2023-09-28] MEDS: HYDROcodone/HOMATROPINE SYRUP 5MG/1.5MG 5ML UDP PO PRN (03:30)
[2023-09-28] MEDS: ACETAMINOPHEN 325 MG TAB PO PRN (06:11)
[2023-09-28 06:14] LABS: Hematocrit (blood only) 38.1 % (42.0-52.0); Hemoglobin 12.8 g/dl (14.0-18.0); Mean Corpuscular Hemoglobin 29.8 pg (25.0-34.0); Mean Corpuscular Hgb Conc 33.6 g/dL (32.0-36.0); Mean Corpuscular Volume 88.8 fL (80.0-100.0); Platelet Count 219 K/uL (130-400); RDW Coefficient of Variation 13.8 % (11.5-14.5); RDW Standard Deviation 44.9 fL (36.4-46.3); Red Blood Count 4.29 M/uL (4.70-6.10); White Blood Count 15.01 K/ul (4.8-10.8)
[2023-09-28 06:37] LABS: Albumin Globulin Ratio 1.2 (0.9-2); Albumin Level 3.9 gm/dl (3.4-5.0); BUN Creatinine Ratio 22.3 (10-20); Bilirubin,Total 0.6 mg/dl (0.2-1.0); Calcium 9.2 mg/dl (8.6-10.3); Creatinine Clr Calc Pharmacy 56.1 ml/min; Est GFR (African American) 76.7 ml/min; Est GFR (Non-African American) 66.2 ml/min; Globulin 3.2 gm/dl (2.5-4.0); Magnesium 2.3 mg/dl (1.7-2.4); Potassium 4.4 mmol/L (3.5-5.1); Total Protein 7.1 gm/dl (6.0-8.3)
[2023-09-28 06:53] LABS: Basophils # (auto) 0.02 K/uL (0.00-0.20); Basophils % (auto) 0.1 %; Immature Granulocytes # (auto) 0.12 K/uL (0.01-0.20); Immature Granulocytes % (auto) 0.8 %; Lymphocytes # (auto) 0.59 K/uL (1.20-3.40); Lymphocytes % (auto) 3.9 %; Monocytes # (auto) 0.54 K/uL (0.11-0.59); Monocytes % (auto) 3.6 %; Neutrophils # (auto) 13.74 K/uL (1.40-6.50); Neutrophils % (auto) 91.6 %; RBC Morphology Unremarkable
--- NOTE | 2023-09-28 08:23 | Hospitalist Progress Note ---
Date of Service September 28, 2023 Assessment & Plan (1) Reactive airway disease: Plan: Presented w/ progressive cough, wheezing, and SOB with exertion since testing positive for RSV in our ED on 09/24 Acute bronchitis due to RSV CXR negative for acute findings but does show chronic significant right hemidiaphragm elevation, no pneumonia Denies previous hx of Asthma or COPD, was a previous smoker approximately 30 years ago Improving but with ongoing wheezing and acute hypoxic respiratory failure-weaned to 2 L nasal cannula Continue IV methylprednisolone but reduce to 40 Mg IV every 12h -- plan to transition to PO prednisone for AM given improvement/resolution in wheezing Continue QID DuoNebs, incentive spirometry, flutter therapy Isolation precautions in place No antibiotics necessary Continue cough syrup and guaifenesin Added hypertonic saline to see if able to help w/ secretions/mucus plugging +bowel regimen added given +BS on exam/distension -- patient reports not moving bowels since 09/23, can check KUB to eval stool burden Supplemental O2 to maintain sats On room air, Spo2 93% currently (2) RSV (respiratory syncytial virus infection): Plan: As above, isolation precautions. cough syrup/nebs/hypertonic saline as outlined (3) Transaminitis: Plan: AST elevated on admission at 137, improving on repeat. Other LFTs are normal. ?2nd to viral process vs rhabdo CK checked, 2266. Statin placed on hold. Does NOT appear dehydration on exam, repeat CK 1264 and will continue to hold statin for now/monitor on repeat (4) High anion gap metabolic acidosis: Plan: -AG elevated at 15 with bicarb of 19 on admission, dehydrated, lactate persistently elevated likely due to hypoxia and perhaps some from dehydration Resolved now after IV fluids and IVF have been discontinued. Reports decent appetite/PO intake (5) Hyponatremia: Plan: Na 125 on admission, typically low-mid 130s. Suspected 2nd to poor po intake in setting of continued diuretics IVF hydration on admission and diuretics held Na 136 on AM labs Will continue to hold PO diuretics for now until PO intake further improved however does not appear volume overloaded at present Monitor BMP (6) Acute kidney injury superimposed on CKD: Plan: Cr of 2.0 on arrival, baseline is 1.7-1.8 Likely due to dehydration and recent NSAID use but cannot rule out obstruction with his history of enlarged prostate Now improved with IV fluids, cr to 1.3 and actually 1.12 on repeat labs FLOMAX restarted on admit, he had run out of his rx --> needs new rx for flomax at dc Monitor I's and O's (unmeasured voids) Continue holding olmesartan, Lasix, and spironolactone --> monitor volume status in AM about possibly resuming some of these given steroid use if having any fluid retention. switching to prednisone as above (7) Hypertension: Plan: Blood pressures are controlled Continue to hold Olmesartan, lasix, and Spironolactone due to dehydration and WILFREDO -Continue Nifedipine (8) Sleep apnea: Plan: -Patient reportedly has not used his CPAP machine in years -Monitor for HS hypoxia -PRN O2 ordered (9) Aortic stenosis, moderate: Plan: Noted monitor volume status in am/likely able to resume some of his home meds/diuretics pending repeat eval/labs (10) Dysfunctional voiding of urine: Plan: Started Flomax again which she has been without for a year and a half Need prescription at discharge (11) Constipation: Plan: as above, no BM since 09/23 reported. KUB ordered to eval stool burden/bowel regimen added. to alert of any worsening abdominal pain but suspect may need enema/suppository/etc Plan changed to full admission PT eval ordered while continued inpatient stay DVT prophylaxis-heparin SQ while inpatient Admission and Anticipated Discharge Date Admission Date: September 26, 2023 Supervising Physician Co-Signing Physician Notes The patient was not seen by me. The chart was reviewed. Case discussed with JULIAN Lobo. Agree with assessment and plan Subjective Evaluated this morning, feeling a little better as far as breathing/less wheezing but still having significant coughing fits/not able to expectorate much sputum. No chest pain, does have some abdominal discomfort in site from heparin injection. Mucinex helping some and able to get a little up this morning but sounds very junky in the bases. Will monitor/add percussion therapy if needed. He also notes he has not had bowel movement since the , senna/docusate, miralax added. +BS on exam but distended. KUB to be obtained to eval for stool burden. Questions/concerns addressed at this time. Physical Exam Constitutional: WD/WN, vitals as above fatigued appearing Respiratory: normal respiratory effort and + cough Auscultation: + crackles (bibasilar crackles/rales R bases) and + wheezes (significantly decreased, faint end expiratory wheezing) Cardiovascular: Rate/Rhythm: regular rate and regular rhythm Heart Sounds: + murmur (+ 1/6 SABINO at the RUSB) Extremities: no edema Gastrointestinal (Abdomen): +BS on exam but +distension, +tenderness at site of heparin SQ but no abnormality on exam Musculoskeletal: generalized weakness but nonfocal, able to follow commands, no slurred speech/facial droop Psychiatric: A+Ox3, euthymic affect fatigued appearing Results & Data Results & Data Vital Signs (Past 12 Hours) Vital Signs Temp Pulse Resp BP Pulse Ox O2 Del Method O2 Flow Rate 09/28/23 07:30 84 20 90 Nasal Cannula 2 09/28/23 07:21 36.5 C 79 18 137/76 95 Nasal Cannula 2 09/27/23 21:10 Nasal Cannula 3 09/27/23 21:01 95 H 18 92 Nasal Cannula 2 Laboratory Results 09/28/23 Range/Units 05:46 WBC 15.01 H (4.8-10.8) K/ul RBC 4.29 L (4.70-6.10) M/uL Hgb 12.8 L (14.0-18.0) g/dl Hct 38.1 L (42.0-52.0) % MCV 88.8 (80.0-100.0) fL MCH 29.8 (25.0-34.0) pg MCHC 33.6 (32.0-36.0) g/dL RDW Std Deviation 44.9 (36.4-46.3) fL RDW Coeff of Anju 13.8 (11.5-14.5) % Plt Count 219 (130-400) K/uL MPV 10.0 (9.4-12.4) fL Immature Gran % (Auto) 0.8 % Neut % (Auto) 91.6 % Lymph % (Auto) 3.9 % [place] % (Auto) 3.6 % Eos % (Auto) 0.0 % Baso % (Auto) 0.1 % Neut # (Auto) 13.74 H (1.40-6.50) K/uL Lymph # (Auto) 0.59 L (1.20-3.40) K/uL [place] # (Auto) 0.54 (0.11-0.59) K/uL Eos # (Auto) 0.00 (0.00-0.50) K/uL Baso # (Auto) 0.02 (0.00-0.20) K/uL Immature Gran # (Auto) 0.12 (0.01-0.20) K/uL RBC Morphology Unremarkable Sodium 136 (136-145) mmol/L Potassium 4.4 (3.5-5.1) mmol/L Chloride 103 (98-107) mmol/L Carbon Dioxide 26 (21-32) mmol/L Anion Gap 7 (3-11) BUN 25 H (6-23) mg/dl Creatinine 1.12 (0.6-1.4) mg/dl Est Cr Clr Drug Dosing 56.1 ml/min Est GFR ( Amer) 76.7 ml/min Est GFR (Non-Af Amer) 66.2 ml/min BUN/Creatinine Ratio 22.3 H (10-20) Glucose 131 H (70-99(Fasting)) mg/dl Calcium 9.2 (8.6-10.3) mg/dl Magnesium 2.3 (1.7-2.4) mg/dl Total Bilirubin 0.6 (0.2-1.0) mg/dl AST 77 H (13-39) U/L ALT 47 (7-52) U/L Alkaline Phosphatase 53 (34-104) U/L Total Creatine Kinase 1264 H (30-223) U/L Total Protein 7.1 (6.0-8.3) gm/dl Albumin 3.9 (3.4-5.0) gm/dl Globulin 3.2 (2.5-4.0) gm/dl Albumin/Globulin Ratio 1.2 (0.9-2) PG Care Time/CCT Total # of Minutes Spent Total Time Spent with Patient: Total time spent is greater than 50% in coordination of care (as documented) at patient's floor/unit and/or counseling patient: Coding Level of Care Code 25005 SUB INP/OBS CARE 3/50MIN Diagnoses Reactive airway disease J45.909 RSV (respiratory syncytial virus infection) B33.8 Transaminitis R74.01 High anion gap metabolic acidosis E87.29 Hyponatremia E87.1 Acute kidney injury superimposed on CKD N17.9; N18.9 Hypertension I10 Sleep apnea G47.30 Aortic stenosis, moderate I35.0 Dysfunctional voiding of urine N39.8 Constipation K59.00
[2023-09-28] MEDS: POLYETHYLENE (MIRALAX) 17 GM PACK PO SCH ×2 (10:03→20:23)
[2023-09-28] MEDS: DOCUSATE SODIUM/SENNA 50/8.6MG TAB PO SCH (10:03)
[2023-09-28] MEDS: SODIUM CHLOR 7% 4 ML NEB NEB SCH (10:16)
--- NOTE | 2023-09-28 14:20 | XRay Report ---
KUB CLINICAL HISTORY: eval constipation/stool burden COMPARISON STUDY: CTA of the abdomen and pelvis April 15, 2020. FINDINGS: There is moderate elevation of the right hemidiaphragm. Moderate stool within the right col on. Overall, the amount of stool is within normal limits. Several mildly dilated gas-filled loops of small bowel are present. There is gas throughout the ascending and transverse colon. IMPRESSION: 1. Moderate amount of stool within the right colon. Small amount of stool within the remainder of the colon and rectum. 2. Several mildly dilated gas-filled small bowel loops. A small bowel obstruction be difficult to ex clude although the appearance is not highly suggestive. ACT 112: Negative or not required by law. Electronically signed by: Jewel Canas M.D. 09/28/2023 2:18 PM
[2023-09-28] MEDS ORDERED: bisacodyL 10 MG SUPP PR PRN (16:37)
[2023-09-29 07:00] LABS: Basophils # (auto) 0.03 K/uL (0.00-0.20); Basophils % (auto) 0.3 %; Hematocrit (blood only) 39.1 % (42.0-52.0); Hemoglobin 13.3 g/dl (14.0-18.0); Immature Granulocytes # (auto) 0.12 K/uL (0.01-0.20); Lymphocytes # (auto) 0.66 K/uL (1.20-3.40); Lymphocytes % (auto) 5.7 %; Mean Corpuscular Hemoglobin 30.1 pg (25.0-34.0); Mean Corpuscular Volume 88.5 fL (80.0-100.0); Mean Platelet Volume 10.2 fL (9.4-12.4); Monocytes # (auto) 0.53 K/uL (0.11-0.59); Monocytes % (auto) 4.6 %; Neutrophils # (auto) 10.23 K/uL (1.40-6.50); Neutrophils % (auto) 88.4 %; Platelet Count 229 K/uL (130-400); RDW Coefficient of Variation 13.4 % (11.5-14.5); RDW Standard Deviation 43.6 fL (36.4-46.3); Red Blood Count 4.42 M/uL (4.70-6.10); White Blood Count 11.57 K/ul (4.8-10.8)
[2023-09-29 07:24] LABS: Albumin Globulin Ratio 1.2 (0.9-2); Albumin Level 3.9 gm/dl (3.4-5.0); BUN Creatinine Ratio 23.9 (10-20); Bilirubin,Total 0.6 mg/dl (0.2-1.0); Calcium 9.3 mg/dl (8.6-10.3); Creatinine Clr Calc Pharmacy 57.7 ml/min; Est GFR (African American) 79.3 ml/min; Est GFR (Non-African American) 68.4 ml/min; Globulin 3.2 gm/dl (2.5-4.0); Magnesium 2.1 mg/dl (1.7-2.4); Total Protein 7.1 gm/dl (6.0-8.3)
[2023-09-29] MEDS: predniSONE 20 MG TAB PO SCH (07:32)
--- NOTE | 2023-09-29 08:02 | Hospitalist Progress Note ---
Date of Service September 29, 2023 Assessment & Plan (1) Reactive airway disease: Plan: Presented w/ progressive cough, wheezing, and SOB with exertion since testing positive for RSV in our ED on 09/24 Acute bronchitis due to RSV CXR negative for acute findings but does show chronic significant right hemidiaphragm elevation, no pneumonia Denies previous hx of Asthma or COPD, was a previous smoker approximately 30 years ago Improving but with ongoing wheezing and acute hypoxic respiratory failure IV methylprednisolone TID decreased to BID on 09/27 and continued through 09/28 Transitioned to prednisone 40mg daily 09/29 Duonebs, incentive spirometry, flutter valve +hypertonic saline w/ reported improvement in ability to clear mucus (clear/white in color) No abx necessary at this time Cough syrup prn Supplemental O2 to maintain sats - 94% on RA after recheck for 89% on RA. Does have some significant snoring when sleeping and hasn't used CPAP in years. Will check overnight pulse ox/should at least be on O2 at night PT/OT consulted while inpatient -- ambulating 275ft w/o AD/supervision. SpO2 after long walk ~85% but rebounded to 93% within 30 second KUB obtained w/o notable obstruction but difficult to rule out. Stool burden n oted. Bowel regimen added. +liquid BM this morning x 1, subsequent smaller formed stool Hopeful dc tomorrow to home on PO prednisone (2) RSV (respiratory syncytial virus infection): Plan: As above, isolation precautions. cough syrup/nebs/hypertonic saline as outlined Afebrile, CXR on repeat w/o acute consolidative process or evidence for pneumonia (3) Transaminitis: Plan: AST elevated on admission at 137, improving on repeat. Other LFTs are normal. ?2nd to viral process vs rhabdo CK checked, 2266. Statin placed on hold. Does NOT appear dehydration on exam, CK on repeat w/ holding statin to 1264 and will continue to hold -> 852 on repeat (4) High anion gap metabolic acidosis: Plan: -AG elevated at 15 with bicarb of 19 on admission, dehydrated, lactate persistently elevated likely due to hypoxia and perhaps some from dehydration Resolved now after IV fluids and IVF have been discontinued. Reports decent appetite/PO intake and improving (5) Hyponatremia: Plan: Na 125 on admission, typically low-mid 130s. Suspected 2nd to poor po intake in setting of continued diuretics IVF hydration on admission and diuretics held Na 133 on repeat and around his baseline Home diuretics resumed today and will continue to monitor (6) Acute kidney injury superimposed on CKD: Plan: Cr of 2.0 on arrival, baseline is 1.7-1.8 Likely due to dehydration and recent NSAID use but cannot rule out obstruction with his history of enlarged prostate Now improved with IV fluids, Cr actually lower than typical at 1.09 Home lasix/spironolactone resumed as above, monitor to resume olmesartan in AM if renal function remaining stable Flomax resumed --> needs new rx as ran out of his at home Monitor I's and O's (unmeasured voids) (7) Hypertension: Plan: Blood pressures are controlled/elevated this morning and home lasix/spironolactone resumed as does not appear overly dehydrated on exam today Remains on nifedipine Monitor labs in am/resume olmesartan if renal function remaining stable (8) Sleep apnea: Plan: Patient reportedly has not used his CPAP machine in years Monitor for HS hypoxia PRN O2 ordered Overnight pulse ox to see about drops/consider arranging 2L HS if unable to tolerate CPAP --> rec f/u outpt PCP (9) Aortic stenosis, moderate: Plan: Noted Resumed home lasix/spironolactone but did not appear significantly volume overloaded and will continue to monitor (10) Dysfunctional voiding of urine: Plan: Started Flomax again which she has been without for a year and a half -- suspect could have been contributing to his elevated recent Cr baseline and improvement since resuming Need prescription at discharge (11) Constipation: Plan: as above, no BM since 09/23 reported when evaluated on 09/28 w/ abdominal distension KUB ordered, had been passing gas. As noted above, +liquid BM this morning and subsequent more formed stool Will hold further miralax and continue docusate/senna in meantime. IF continued BMs can place to prn and should be encouraged to likely increase fiber intake at baseline to prevent constipation Plan changed to full admission, continued inpatient stay DVT proph: Heparin SQ while inpatient Patient not feeling ready for discharge just yet and will monitor overnight w/ switch to PO prednisone and hopefully able to discharge patient 09/30 to home Admission and Anticipated Discharge Date Admission Date: September 28, 2023 Supervising Physician Co-Signing Physician Notes The patient was not seen by me. The chart was reviewed. Case discussed with JULIAN St. Agree with assessment and plan Subjective Eval this morning, did have some liquid/loose stool this morning. continues on bowel regimen given extended time not moving his bowels. Reports abdomen feels a little better since moving them. Hypertonic saline effective to bring up some sputum, clear/white in color reported. Home lasix/spironolactone resumed for this morning given appetite improved/labs stable. Does have some faint expiratory wheezing, scattered crackles. Pulmonary toilet/incentive spirometry encouraged. On room air but was 89% this morning but 94% on recheck and will continue to monitor. Ongoing coughing spasms at times, will ask RN to administer dose of cough syrup for symptom relief. No fever/chills. Of note, discussion w/ nursing staff as does appear to be more compliant with exercises/etc when brother is here. Continued PT/OT while inpatient. Physical Exam Physical Exam: General: 68yo male resting in bed upon entry, NAD, reports had some liquid diarrhea/BM this morning (snoring while sleeping during subsequent checks) Head atraumatic, normocephalic, mmm, trachea midline Resp: even/unlabored, faint end expiratory wheeze, scattered crackles, on room air 94% CV: RRR, faint systolic murmur, no significant LE edema/calf tenderness GI: +BS, slight distension (decreased), no overt tenderness/guarding no gooden MSK/Neuro: no focal deficits, generalized weakness but nonfocal, strength equal bilaterally Psych: AOx3, cooperative Results & Data Results & Data Vital Signs (Past 12 Hours) Vital Signs Temp Pulse Resp BP Pulse Ox O2 Del Method O2 Flow Rate 09/29/23 07:45 75 15 89 L Room Air 09/29/23 07:08 36.5 C 72 18 174/89 H 94 Room Air 09/28/23 20:42 87 18 94 Room Air 09/28/23 20:22 Room Air 09/28/23 20:22 88 L Nasal Cannula 0 09/28/23 20:12 36.6 C 95 H 15 158/62 H 94 Room Air Laboratory Results 09/29/23 Range/Units 06:04 WBC 11.57 H (4.8-10.8) K/ul RBC 4.42 L (4.70-6.10) M/uL Hgb 13.3 L (14.0-18.0) g/dl Hct 39.1 L (42.0-52.0) % MCV 88.5 (80.0-100.0) fL MCH 30.1 (25.0-34.0) pg MCHC 34.0 (32.0-36.0) g/dL RDW Std Deviation 43.6 (36.4-46.3) fL RDW Coeff of Anju 13.4 (11.5-14.5) % Plt Count 229 (130-400) K/uL MPV 10.2 (9.4-12.4) fL Immature Gran % (Auto) 1.0 % Neut % (Auto) 88.4 % Lymph % (Auto) 5.7 % [place] % (Auto) 4.6 % Eos % (Auto) 0.0 % Baso % (Auto) 0.3 % Neut # (Auto) 10.23 H (1.40-6.50) K/uL Lymph # (Auto) 0.66 L (1.20-3.40) K/uL [place] # (Auto) 0.53 (0.11-0.59) K/uL Eos # (Auto) 0.00 (0.00-0.50) K/uL Baso # (Auto) 0.03 (0.00-0.20) K/uL Immature Gran # (Auto) 0.12 (0.01-0.20) K/uL Sodium 133 L (136-145) mmol/L Potassium 4.0 (3.5-5.1) mmol/L Chloride 100 (98-107) mmol/L Carbon Dioxide 26 (21-32) mmol/L Anion Gap 7 (3-11) BUN 26 H (6-23) mg/dl Creatinine 1.09 (0.6-1.4) mg/dl Est Cr Clr Drug Dosing 57.7 ml/min Est GFR ( Amer) 79.3 ml/min Est GFR (Non-Af Amer) 68.4 ml/min BUN/Creatinine Ratio 23.9 H (10-20) Glucose 121 H (70-99(Fasting)) mg/dl Calcium 9.3 (8.6-10.3) mg/dl Magnesium 2.1 (1.7-2.4) mg/dl Total Bilirubin 0.6 (0.2-1.0) mg/dl AST 52 H (13-39) U/L ALT 48 (7-52) U/L Alkaline Phosphatase 55 (34-104) U/L Total Creatine Kinase 852 H (30-223) U/L Total Protein 7.1 (6.0-8.3) gm/dl Albumin 3.9 (3.4-5.0) gm/dl Globulin 3.2 (2.5-4.0) gm/dl Albumin/Globulin Ratio 1.2 (0.9-2) Diagnostic Findings Chest X-Ray 09/29/23 07:00 XR chest 2V PA/lateral CLINICAL HISTORY: f/u COMPARISON STUDY: Chest radiograph September 26, 2023. FINDINGS: Moderate elevation the right hemidiaphragm is unchanged. Associated linear right basilar densities represent atelectasis or scarring. There is no pneumothorax or pleural effusion. Cardiac size is normal. Mediastinal contours are normal. There is no evidence for pulmonary edema. IMPRESSION: No acute cardiopulmonary findings. No change in appearance of the chest. ACT 112: Negative or not required by law. Electronically signed by: Jewel Canas M.D. 09/29/2023 10:53 AM PG Care Time/CCT Total # of Minutes Spent Total Time Spent with Patient: Total time spent is greater than 50% in coordination of care (as documented) at patient's floor/unit and/or counseling patient: Coding Level of Care Code 78193 SUB INP/OBS CARE 3/50MIN Diagnoses Reactive airway disease J45.909 RSV (respiratory syncytial virus infection) B33.8 Transaminitis R74.01 High anion gap metabolic acidosis E87.29 Hyponatremia E87.1 Acute kidney injury superimposed on CKD N17.9; N18.9 Hypertension I10 Sleep apnea G47.30 Aortic stenosis, moderate I35.0 Dysfunctional voiding of urine N39.8 Constipation K59.00
[2023-09-29] MEDS: SPIRONOLACTONE 25 MG TAB PO SCH (09:14)
[2023-09-29] MEDS: FUROSEMIDE 20 MG TAB PO SCH (09:14)
--- NOTE | 2023-09-29 10:54 | XRay Report ---
XR chest 2V PA/lateral CLINICAL HISTORY: f/u COMPARISON STUDY: Chest radiograph September 26, 2023. FINDINGS: Moderate elevation the right hemidiaphragm is unchanged. Associated linear right basilar de nsities represent atelectasis or scarring. There is no pneumothorax or pleural effusion. Cardiac size is normal. Mediastinal contours are normal. There is no evidence for pulmonary edema. IMPRESSION: No acute cardiopulmonary findings. No change in appearance of the chest. ACT 112: Negative or not required by law. Electronically signed by: Jewel Canas M.D. 09/29/2023 10:53 AM
--- NOTE | 2023-09-30 08:17 | Hospitalist Progress Note ---
Date of Service September 30, 2023 Assessment & Plan (1) Reactive airway disease: Plan: Presented w/ progressive cough, wheezing, and SOB with exertion since testing positive for RSV in our ED on 09/24 Acute bronchitis due to RSV CXR negative for acute findings but does show chronic significant right hemidiaphragm elevation, no pneumonia Denies previous hx of Asthma or COPD, was a previous smoker approximately 30 years ago Improving but with ongoing wheezing and acute hypoxic respiratory failure IV methylprednisolone TID decreased to BID on 09/27 and continued through 09/28 Transitioned to prednisone 40mg daily 09/29 Duonebs, incentive spirometry, flutter valve +hypertonic saline w/ reported improvement in ability to clear mucus (clear/white in color) No abx necessary at this time Cough syrup prn Supplemental O2 to maintain sats - 94% on RA after recheck for 89% on RA. Does have some significant snoring when sleeping and hasn't used CPAP in years. Will check overnight pulse ox/should at least be on O2 at night PT/OT consulted while inpatient -- ambulating 275ft w/o AD/supervision. SpO2 after long walk ~85% but rebounded to 93% within 30 second KUB obtained w/o notable obstruction but difficult to rule out. Stool burden n oted. Bowel regimen added. +liquid BM this morning x 1, subsequent smaller formed stool Hopeful dc tomorrow to home on PO prednisone (2) RSV (respiratory syncytial virus infection): Plan: As above, isolation precautions. cough syrup/nebs/hypertonic saline as outlined Afebrile, CXR on repeat w/o acute consolidative process or evidence for pneumonia (3) Transaminitis: Plan: AST elevated on admission at 137, improving on repeat. Other LFTs are normal. ?2nd to viral process vs rhabdo CK checked, 2266. Statin placed on hold. Does NOT appear dehydration on exam, CK on repeat w/ holding statin to 1264 and will continue to hold -> 852 on repeat (4) High anion gap metabolic acidosis: Plan: -AG elevated at 15 with bicarb of 19 on admission, dehydrated, lactate persistently elevated likely due to hypoxia and perhaps some from dehydration Resolved now after IV fluids and IVF have been discontinued. Reports decent appetite/PO intake and improving (5) Hyponatremia: Plan: Na 125 on admission, typically low-mid 130s. Suspected 2nd to poor po intake in setting of continued diuretics IVF hydration on admission and diuretics held Na 133 on repeat and around his baseline Home diuretics resumed today and will continue to monitor (6) Acute kidney injury superimposed on CKD: Plan: Cr of 2.0 on arrival, baseline is 1.7-1.8 Likely due to dehydration and recent NSAID use but cannot rule out obstruction with his history of enlarged prostate Now improved with IV fluids, Cr actually lower than typical at 1.09 Home lasix/spironolactone resumed as above, monitor to resume olmesartan in AM if renal function remaining stable Flomax resumed --> needs new rx as ran out of his at home Monitor I's and O's (unmeasured voids) (7) Hypertension: Plan: Blood pressures are controlled/elevated this morning and home lasix/spironolactone resumed as does not appear overly dehydrated on exam today Remains on nifedipine Monitor labs in am/resume olmesartan if renal function remaining stable (8) Sleep apnea: Plan: Patient reportedly has not used his CPAP machine in years Monitor for HS hypoxia PRN O2 ordered Overnight pulse ox to see about drops/consider arranging 2L HS if unable to tolerate CPAP --> rec f/u outpt PCP (9) Aortic stenosis, moderate: Plan: Noted Resumed home lasix/spironolactone but did not appear significantly volume overloaded and will continue to monitor (10) Dysfunctional voiding of urine: Plan: Started Flomax again which she has been without for a year and a half -- suspect could have been contributing to his elevated recent Cr baseline and improvement since resuming Need prescription at discharge (11) Constipation: Plan: as above, no BM since 09/23 reported when evaluated on 09/28 w/ abdominal distension KUB ordered, had been passing gas. As noted above, +liquid BM this morning and subsequent more formed stool Will hold further miralax and continue docusate/senna in meantime. IF continued BMs can place to prn and should be encouraged to likely increase fiber intake at baseline to prevent constipation Plan changed to full admission, continued inpatient stay DVT proph: Heparin SQ while inpatient Patient not feeling ready for discharge just yet and will monitor overnight w/ switch to PO prednisone and hopefully able to discharge patient 09/30 to home Admission and Anticipated Discharge Date Admission Date: September 28, 2023 Results & Data Results & Data Vital Signs (Past 12 Hours) Vital Signs Temp Pulse Pulse Resp BP Pulse Ox Pulse Ox 09/30/23 07:44 86 15 91 09/30/23 07:30 36.7 C 80 18 155/90 H 95 09/29/23 22:35 93 H 90 O2 Del Method O2 Del Method 09/30/23 07:44 Room Air 09/30/23 07:30 Room Air 09/29/23 22:35 Room Air PG Care Time/CCT Total # of Minutes Spent Total Time Spent with Patient: Total time spent is greater than 50% in coordination of care (as documented) at patient's floor/unit and/or counseling patient: Coding Diagnoses Reactive airway disease J45.909 RSV (respiratory syncytial virus infection) B33.8 Transaminitis R74.01 High anion gap metabolic acidosis E87.29 Hyponatremia E87.1 Acute kidney injury superimposed on CKD N17.9; N18.9 Hypertension I10 Sleep apnea G47.30 Aortic stenosis, moderate I35.0 Dysfunctional voiding of urine N39.8 Constipation K59.00
[2023-09-30 08:28] LABS: Bilirubin Direct 0.1 mg/dl (0-0.2); Bilirubin,Total 0.7 mg/dl (0.2-1.0); Calcium 9.4 mg/dl (8.6-10.3); Creatinine Clr Calc Pharmacy 51.5 ml/min; Est GFR (African American) 69.2 ml/min; Est GFR (Non-African American) 59.7 ml/min; Magnesium 2.2 mg/dl (1.7-2.4); Potassium 3.4 mmol/L (3.5-5.1); Total Protein 7.3 gm/dl (6.0-8.3)
[2023-09-30] MEDS: POTASSIUM CHLORIDE 10 MEQ TABCR PO STA (08:41)
--- NOTE | 2023-09-30 10:50 | Discharge Summary ---
Date of Service September 30, 2023 Admission HPI Per Admitting Provider Joe is a 68 year old male with a PMH significant for HTN, stage 3 CKD, chronic hyponatremia, aortic stenosis, and GERD who presented to the [facility] ED on 09/26/23 for progressive cough and SOB. He remained stable in the ED. Labs were significant for a leukocytosis of 12 with neutrophil predominance of 10, lymphocyte count of 0.59, Cr of 2.0 (baseline is near 1.5-1.7), BUN of 36, AG of 15 with bicarb of 19, chloride of 91, sodium of 125 (normally in the low-mid 130's), AST of 137. The patient was seen in the [facility] ED on 09/24 for respiratory symptoms and tested positive for RSV. His labs and imaging were WNL and he was discharged home. CXR was stable and without acute findings compared to last on 09/24. Prior to admission the patient was given an hour long albuterol treatment, 60 mg IV methylprednisolone, and 1L NSS. At the time of the exam the patient was sitting in bed in mild distress due to his severe cough with his son sitting bedside, history was obtained from both. They confirm that he was seen in the [facility] ED for his respiratory symptoms on 09/24 and tested positive for RSV. He states that the breathing treatment he received in the ED helped at that time but he was not discharged with any b reathing treatments. He was using OTC Guaifenesin, Tylenol, and Ibuprofen for his symptoms at home without relief. He has had poor oral intake over the past 48 hours since his symptoms began but has still been taking his prescription medications including lasix and spironolactone as prescribed. He denies recent chest pain, SOB and rest, hemoptysis, abd pain, nausea, vomiting, diarrhea, dysuria, hematuria, LE swelling, and recent trauma. He states that his prescription for Flomax ran out recently so he has been having increased urinary frequency. He is a full code and would want his son to make medical decisions for him if he cannot make them himself. Please refer to Dr. Torres's attestation for any changes to the treatment plan Principal Diagnosis Acute bronchitis due to RSV infection Discharge Exam General: 68yo male resting in bed upon entry, NAD, reports had some liquid diarrhea/BM this morning (snoring while sleeping during subsequent checks) Head atraumatic, normocephalic, mmm, trachea midline Resp: even/unlabored, faint end expiratory wheeze, scattered crackles, on room air 94% CV: RRR, faint systolic murmur, no significant LE edema/calf tenderness GI: +BS, slight distension (decreased), no overt tenderness/guarding no gooden MSK/Neuro: no focal deficits, generalized weakness but nonfocal, strength equal bilaterally Psych: AOx3, cooperative Constitutional WD/WN, vitals as above ENMT mmm Neck trachea midline, +thick neck Respiratory normal respiratory effort and + cough (SIGNIFICANTLY IMPROVED/decreased) Auscultation: + crackles (bibasilar crackles/rales R bases) and + wheezes (significantly decreased/resolved. faint end expiratory wheeze) on ROOM AIR Cardiovascular Rate/Rhythm: regular rate and regular rhythm Heart Sounds: + murmur (+ 1/6 SABINO at the RUSB) Extremities: no edema Gastrointestinal (Abdomen) +BS, soft, significantly less distension, nontender to palpation Musculoskeletal nonfocal, strength equal, ambulating in the room without difficulty/dressing himself Psychiatric A+Ox3, euthymic affect Discharge Data Allergies Allergy/AdvReac Type Severity Reaction Status Date / Time No Known Allergies Allergy Verified 09/24/23 19:02 Consultations 09/26/23 13:44 ED Decision to Admit Stat Ordered Studies Chest X-Ray 09/26/23 11:02 XR chest 1V not portable HISTORY: Chest pain, nonspecific COMPARISON: Chest 09/24/2023. FINDINGS: No pneumothorax. No pleural effusions. The heart remains top normal in size. The left lung is clear. Elevated right hemidiaphragm and right basilar linear densities persist. This favors subsegmental atelectasis. No new focal lung consolidations to suggest a pneumonia. No evidence for pulmonary edema. No acute fractures. IMPRESSION: No significant change compared to the prior study. No acute process. ACT 112: Negative or not required by law. Electronically signed by: Jarrett Bustos M.D. 09/26/2023 11:59 AM KUB X-Ray 09/28/23 09:49 KUB CLINICAL HISTORY: eval constipation/stool burden COMPARISON STUDY: CTA of the abdomen and pelvis April 15, 2020. FINDINGS: There is moderate elevation of the right hemidiaphragm. Moderate stool within the right colon. Overall, the amount of stool is within normal limits. Several mildly dilated gas-filled loops of small bowel are present. There is gas throughout the ascending and transverse colon. IMPRESSION: 1. Moderate amount of stool within the right colon. Small amount of stool within the remainder of the colon and rectum. 2. Several mildly dilated gas-filled small bowel loops. A small bowel obstruction be difficult to exclude although the appearance is not highly suggestive. ACT 112: Negative or not required by law. Electronically signed by: Jewel Canas M.D. 09/28/2023 2:18 PM Chest X-Ray 09/29/23 07:00 XR chest 2V PA/lateral CLINICAL HISTORY: f/u COMPARISON STUDY: Chest radiograph September 26, 2023. FINDINGS: Moderate elevation the right hemidiaphragm is unchanged. Associated linear right basilar densities represent atelectasis or scarring. There is no pneumothorax or pleural effusion. Cardiac size is normal. Mediastinal contours are normal. There is no evidence for pulmonary edema. IMPRESSION: No acute cardiopulmonary findings. No change in appearance of the chest. ACT 112: Negative or not required by law. Electronically signed by: Jewel Canas M.D. 09/29/2023 10:53 AM Hospital Course (1) Reactive airway disease: Presented w/ progressive cough, wheezing, and SOB with exertion since testing positive for RSV in our ED on 09/24 Acute bronchitis due to RSV CXR negative for acute findings but does show chronic significant right hemidiaphragm elevation, no pneumonia Denies previous hx of Asthma or COPD, was a previous smoker approximately 30 years ago IV methylprednisolone TID, decresed to BID and transitioned to prednisone 40mg daily at discharge to complete course Was provided with supportive care, duonebs, pulmonary toilet. Hypertonic saline and mucinex to help with secretions w/ improvement and to conitnue mucinex at dc 94% on RA, reported significant improvement in breathing and remaining on room air. 2 step prior to discharge w/o oxygen needs and wanting to go home which has been arranged. Albuterol HFA provided and encouraged continued incentive spirometer at discharge Overnight pulse ox w/ drop - hx NI and hasn't been using his CPAP (witnessed snoring while sleeping) -- arranged for 2L HS w/ [facility] w/ CM at discharge and discussed about having repeat sleep study/CPAP in follow up with PCP (2) RSV (respiratory syncytial virus infection): As above, isolation precautions. cough syrup/nebs/hypertonic saline as outlined Afebrile, CXR on repeat w/o acute consolidative process or evidence for pneumonia Remaining stable on room air w/ switch to PO prednisone and continued course at dc along w/ albuterol HFA as needed and Mucinex/pulmonary toilet (3) Transaminitis: AST elevated on admission at 137, improving on repeat. Other LFTs are normal. ?2nd to viral process vs rhabdo CK checked, 2266 and statin placed on hold. Did NOT appear dehydration on exam, CK on repeat 1264--> 852--> 641 w/ holding stating and resuming his diuretics and rec'd to continue to hold statin until discussed w/ PCP in follow up (4) High anion gap metabolic acidosis: -AG elevated at 15 with bicarb of 19 on admission, dehydrated, lactate persistently elevated likely due to hypoxia and perhaps some from dehydration Resolved now after IV fluids and IVF have been discontinued. Reports decent appetite/PO intake and improving (5) Hyponatremia: Na 125 on admission, typically low-mid 130s. Suspected 2nd to poor po intake in setting of continued diuretics IVF hydration on admission and diuretics held Na 133 on repeat and around his baseline and home diuretics resumed and 134 on repeat F/u outpt (6) Acute kidney injury superimposed on CKD: Cr of 2.0 on arrival, baseline is 1.7-1.8 Likely due to dehydration and recent NSAID use but cannot rule out obstruction with his history of enlarged prostate Flomax started/continued (was to be on at baseline, had been ~1 year without it)--> rx sent at [facility] to continue Improved w/ IVF/holding diuretics, resumed home meds w/ Cr 1.09 and 1.22 prior to dc. TO discuss his olmesartan w/ PCP in f/u (7) Hypertension: BP stable/labile at times continued on nifedipine, lasix/spironolactone resumed and olmesartan to resume at dc if ok w/ PCP in discussions FLomax resumed as above Benefit from having his CPAP/treatment of underlying NI as well (8) Sleep apnea: Patient reportedly has not used his CPAP machine in years -- prn O2 ordered but hadn't used Overnight pulse ox to see about drops/consider arranging 2L HS if unable to tolerate CPAP --> rec f/u outpt PCP and 2L HS arranged in meantime (9) Aortic stenosis, moderate: Noted Resumed home lasix/spironolactone but did not appear significantly volume overloaded and will continue to monitor (10) Dysfunctional voiding of urine: Started Flomax again which she has been without for a year and a half -- suspect could have been contributing to his elevated recent Cr baseline and improvement since resuming Need prescription at discharge - sent (11) Constipation: as above, no BM since 09/23 reported when evaluated on 09/28 w/ abdominal distension KUB ordered, had been passing gas. +liquid BM 09/29, more formed in afternoon. Reported continued more normal BM while inpatient --> discussed to increase fiber intake at baseline to prevent constipaiton. ABdomen much softer If never had c-scope, should be discussed in f/u if patient agreeable Plan DVT proph: Heparin SQ while inpatient Patient anxious for dc and was dressed upon arrival 09/30 and breathing stable and sent on oral steroids w/ albuterol HFA to home and to return if any worsening Total Time Total Time Spent Total Time Spent (In Minutes): 45 Discharge Plan Discharge Items Patient Disposition: Home - Self-Care Reason For Visit: RSV, ACUTE ON CHRONIC HYPONATREMIA, BRONCHITIS Discharge Diagnosis: RSV, Bronchtitis Condition on Discharge: Fair Goals: You have been hospitalized for an acute medical problem. During your stay at [facility], we have made an effort to correct the problem that brought you to the hospital while keeping you as comfortable as possible. Medications were used to bring your condition under control and your discharge instructions will include directions for any medications you should take after leaving the hospital. Please make sure you see your Primary Care Provider as part of your follow up plan. Activity: As commented below Non-emergency contact: Primary Care Provider Call non-emergency contact if: you have any medication questions, your symptoms worsen and you have a fever Follow-up/Referrals: Harish Retana, [Primary Care Provider] - Diet: Heart Healthy Addtl Attending Provider Instructions: You have been hospitalized for shortness of breath and positive for RSV, viral process. Imaging did not show evidence for bacterial pneumonia and you were provided with IV steroids for bronchitis/reactive airway and nebulizer treatments and have been weaned to room air and testing with ambulation did NOT show you need any supplemental oxygen at rest or with walking. You are being sent home on oral prednisone 40mg daily for the next 4 days to complete the course. You should continue the breathing exercises as discussed to prevent a pneumonia during this time. You DO however drop at night and should continue oxygen 2 liters at night. This should be arranged at discharge and you should discuss with primary care about repeating sleep study/getting you CPAP back as an outpatient. You have been sent a prescription for an albuterol inhaler to use every 4-6 hours as needed for shortness of breath/wheezing in the meantime. You should continue Mucinex twice daily to help prevent mucus congestion as well as you have been given this while in the hospital as well. You should HOLD your pravastatin for the next 3-4 days until further improved f rom current infection to prevent increased muscle cramping. You should follow up with primary care in the next week to monitor your progress after discharge. You should return to the ER with any increased shortness of breath, chest pain, fever, or for any other symptoms concerning for you. Take care! Pending Studies at Discharge: No Stand-Alone Forms: My [facility], Smoking Cessation Medications and DC Order Prescriptions: New tamsulosin 0.4 mg Capsule 0.4 mg PO HS Qty: 30 0RF guaifenesin [Mucinex] 600 mg Tablet Extended Release 12hr 600 mg PO Q12 Qty: 14 0RF albuterol sulfate 90 mcg/actuation HFA aerosol inhaler 2 inh inhalation Q4H PRN (Reason: shortness of breath or wheezing) Qty: 6.7 0RF prednisone 20 mg tablet 40 mg PO DAILY 4 Days Qty: 8 0RF Continued furosemide 20 mg tablet 20 mg PO QAM Qty: 90 3RF cholecalciferol (vitamin D3) 25 mcg (1,000 unit) capsule 25 mcg PO QAM Qty: 90 3RF nifedipine 60 mg tablet extended release 60 mg PO DAILY Qty: 90 3RF spironolactone 25 mg tablet 25 mg PO BID coenzyme Q10 200 mg capsule 200 mg PO QAM pantoprazole 40 mg tablet,delayed release (DR/EC) 40 mg PO BID Held olmesartan 40 mg tablet 40 mg PO QAM Hold Instructions: Resume on 10/05/23. until seen by primary care pravastatin 40 mg tablet 40 mg PO HS Hold Instructions: Resume on 10/05/23. hold until seen by primary care Discharge Orders: Discharge Order (Routine); Ordered 09/30/23 Ordered By: Arlyn Schultz Admission Data Admit Date/Time: 09/28/23 12:44 Attending Provider: Joe Walker Admit Provider: Duc Torres Primary Care Provider: Harish Retana Other Providers: Duc Torres Other Interventions: Discharge Summary Assessment (RN) Last Done: 09/30/23 11:08 Supervising Physician Co-Signing Physician Notes The patient was not seen by me. The chart was reviewed. Case discussed with JULIAN Lobo. Agree with assessment and plan. The patient is medically stable for discharge today, September 30 Coding Level of Care Code 61311 INP/OBS DISCH >30 MIN Diagnoses Reactive airway disease J45.909 RSV (respiratory syncytial virus infection) B33.8 Transaminitis R74.01 High anion gap metabolic acidosis E87.29 Hyponatremia E87.1 Acute kidney injury superimposed on CKD N17.9; N18.9 Hypertension I10 Sleep apnea G47.30 Aortic stenosis, moderate I35.0 Dysfunctional voiding of urine N39.8 Constipation K59.00
== END 2023-09-30 11:47 | disposition home or self-care (01) | DRG 202 ==
LOC: ED 10:55 → EDINP 14:21 → INTOOBSV 14:21 → SUATTDRO 14:21 → 3E 09-27 13:17

== ENCOUNTER 2024-10-01 21:41 | Observation (INO) ==
--- NOTE | 2024-10-01 22:22 | Emergency Department Note ---
History of Present Illness General Chief complaint: Unable to Void Stated complaint: CATHETER NOT WORKING, HIGH BP Time Seen by Provider: 10/01/24 22:13 History of Present Illness Maximum Pain Intensity: 10 This is a 69-year-old male presenting to the emergency department from home for evaluation of urinary retention. The patient has had a Doyle catheter in place for the past 2 months. He does have a history of BPH with LUTS. Patient last had his Doyle changed 2 weeks ago through the urology office. He began having decreased outflow this evening, and now cannot get the catheter to work at home. He rates his discomfort a 10/10. No fevers or chills. He feels like he has been eating and drinking as normal. Home Medications Medication Instructions Recorded Confirmed Type olmesartan 40 mg tablet 40 mg PO QAM 03/04/21 07/29/24 History spironolactone 25 mg tablet 25 mg PO BID 03/04/21 10/02/24 History coenzyme Q10 200 mg capsule 200 mg PO QAM 11/23/21 07/29/24 History nifedipine 60 mg tablet,extended 60 mg PO DAILY #90 tabs 01/13/23 07/29/24 Rx release cholecalciferol (vitamin D3) 25 25 mcg PO QAM #90 caps 02/21/23 07/29/24 Rx mcg (1,000 unit) capsule pantoprazole 40 mg tablet,delayed 40 mg PO BID 09/24/23 07/29/24 History release pravastatin 40 mg tablet 40 mg PO HS 09/26/23 07/29/24 History albuterol sulfate 90 mcg/actuation 2 inh inhalation Q4H PRN shortness 09/30/23 07/29/24 Rx aerosol inhaler of breath or wheezing #6.7 grams guaifenesin 600 mg tablet, 600 mg PO Q12 #14 tabs 09/30/23 07/29/24 Rx extended release 12 hr (Mucinex) finasteride 5 mg tablet 5 mg PO DAILY #90 tabs 09/16/24 10/02/24 Rx tamsulosin 0.4 mg capsule 0.4 mg PO HS #90 caps 09/16/24 10/02/24 Rx ezetimibe 10 mg tablet mg 10/02/24 History furosemide 20 mg tablet 20 mg PO DAILY 10/02/24 History Allergies Allergy/AdvReac Type Severity Reaction Status Date / Time No Known Allergies Allergy Verified 07/29/24 08:27 Past Med/Surg History Problem List (Updated 10/02/24 @ 05:35 by Devon Jefferson PA-C) Malfunction of Doyle catheter (Acute) Elevated troponin (Acute) Hypertension (Acute) UTI (urinary tract infection) Elevated troponin BPH w urinary obs/LUTS Acute urinary retention (Acute) Transaminitis High anion gap metabolic acidosis Sleep apnea hasn't used CPAP for year Acute kidney injury superimposed on CKD Reactive airway disease RSV (respiratory syncytial virus infection) (Acute) Chest congestion (Acute) Cough (Acute) Vitamin D deficiency Dysfunctional voiding of urine Vitreous hemorrhage, right eye Hypertension Chronic kidney disease, stage III (moderate) (Acute) Hyponatremia (Acute) Tricuspid regurgitation Aortic stenosis, moderate KIM 1.4 cm2 01/06/20 - follows PSH - pt unsure of dna analyst Overweight (BMI 25.0-29.9) Medical History Constipation Visual impairment "BLACK HOLE RT EYE" Hypertension Surgical History History of cataract surgery right Hx of eye surgery right eye black hole Hx of vitrectomy left History of tooth extraction Family History Other No significant family history Social History Smoking Status: Former smoker Second Hand Exposure: No; Do You Dip or Chew Tobacco: No; Hx Alcohol Use: No Hx Substance Use: No Preferred Language: Turkmen Communication Ability: Effective Communication Ability Comment: some visual impairment Visual Impairment: Limited Hearing Ability: Normal 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 Chemical Cleaning Required: No Beliefs That Will Affect Care: None marital status: Current Living Situation: Alone current occupational status: retired Feels Safe at Home: Yes Diet: regular caffeine: Yes (2-3 cups coffee daily) Physical Activity Frequency: Does not Exercise Seatbelt Use: always Do you think of yourself as: straight/heterosexual Gender Identity: Male Assistive Devices: Cane Review of Systems A total of 10 systems reviewed and were otherwise negative Physical Exam Vital Signs Vital Signs - 24 hr 10/01/24 21:52 10/02/24 01:12 10/02/24 01:12 Temperature 36.4 C L Temperature Source Oral Pulse Rate 136 H 92 H 92 H Pulse Rate [Right Finger] Pulse Rate from SpO2 Sensor Pulse Rhythm Regular Pulse Rhythm [Right Finger] Pulse Strength Normal Pulse Strength [Right Finger] Respiratory Rate 20 25 H Respiratory Effort / Characteristics Non-Labored Spontaneous Respiratory Depth Normal Respiratory Pattern Regular Blood Pressure 220/108 H 198/108 H Blood Pressure [Left Arm] Blood Pressure Mean 145 138 Blood Pressure Mean [Left Arm] Blood Pressure Position [Left Arm] Pulse Oximetry 94 Oxygen Delivery Method Room Air Sepsis Recent Fever Within 48 Hours No Sepsis New/Unexplained Change in Mental Status N/A Sepsis Action Taken by Nursing No Action Required 10/02/24 01:16 10/02/24 01:16 10/02/24 01:30 Temperature Temperature Source Pulse Rate 90 89 Pulse Rate [Right Finger] 90 Pulse Rate from SpO2 Sensor 89 Pulse Rhythm Regular Pulse Rhythm [Right Finger] Regular Pulse Strength Pulse Strength [Right Finger] Normal Respiratory Rate 27 H 26 H 26 H Respiratory Effort / Characteristics Non-Labored Respiratory Depth Normal Respiratory Pattern Regular Blood Pressure 183/104 H Blood Pressure [Left Arm] 198/108 H Blood Pressure Mean 130 Blood Pressure Mean [Left Arm] 138 Blood Pressure Position [Left Arm] Lying Pulse Oximetry 90 90 90 Oxygen Delivery Method Room Air Room Air Sepsis Recent Fever Within 48 Hours Sepsis New/Unexplained Change in Mental Status Sepsis Action Taken by Nursing 10/02/24 01:51 10/02/24 02:15 10/02/24 02:15 Temperature Temperature Source Pulse Rate 81 79 Pulse Rate [Right Finger] Pulse Rate from SpO2 Sensor 81 80 Pulse Rhythm Pulse Rhythm [Right Finger] Pulse Strength Pulse Strength [Right Finger] Respiratory Rate 17 19 Respiratory Effort / Characteristics Respiratory Depth Respiratory Pattern Blood Pressure 189/109 H 166/108 H 166/108 H Blood Pressure [Left Arm] Blood Pressure Mean 135 130 127 Blood Pressure Mean [Left Arm] Blood Pressure Position [Left Arm] Pulse Oximetry 96 91 Oxygen Delivery Method Sepsis Recent Fever Within 48 Hours Sepsis New/Unexplained Change in Mental Status Sepsis Action Taken by Nursing 10/02/24 02:30 10/02/24 02:47 10/02/24 02:48 Temperature Temperature Source Pulse Rate 81 72 Pulse Rate [Right Finger] 75 Pulse Rate from SpO2 Sensor 82 71 Pulse Rhythm Pulse Rhythm [Right Finger] Regular Pulse Strength Pulse Strength [Right Finger] Normal Respiratory Rate 18 19 13 Respiratory Effort / Characteristics Non-Labored Respiratory Depth Normal Respiratory Pattern Regular Blood Pressure 186/97 H 171/100 H Blood Pressure [Left Arm] 171/100 H Blood Pressure Mean 126 123 Blood Pressure Mean [Left Arm] 123 Blood Pressure Position [Left Arm] Lying Pulse Oximetry 93 93 93 Oxygen Delivery Method Room Air Sepsis Recent Fever Within 48 Hours Sepsis New/Unexplained Change in Mental Status Sepsis Action Taken by Nursing 10/02/24 03:00 10/02/24 04:03 10/02/24 05:00 Temperature Temperature Source Pulse Rate 82 79 78 Pulse Rate [Right Finger] Pulse Rate from SpO2 Sensor 82 77 Pulse Rhythm Pulse Rhythm [Right Finger] Pulse Strength Pulse Strength [Right Finger] Respiratory Rate 19 18 Respiratory Effort / Characteristics Respiratory Depth Respiratory Pattern Blood Pressure 184/100 H 182/110 H Blood Pressure [Left Arm] Blood Pressure Mean 128 134 Blood Pressure Mean [Left Arm] Blood Pressure Position [Left Arm] Pulse Oximetry 93 96 Oxygen Delivery Method Sepsis Recent Fever Within 48 Hours Sepsis New/Unexplained Change in Mental Status Sepsis Action Taken by Nursing 10/02/24 05:00 Temperature Temperature Source Pulse Rate 79 Pulse Rate [Right Finger] Pulse Rate from SpO2 Sensor 80 Pulse Rhythm Pulse Rhythm [Right Finger] Pulse Strength Pulse Strength [Right Finger] Respiratory Rate 26 H Respiratory Effort / Characteristics Respiratory Depth Respiratory Pattern Blood Pressure 184/96 H Blood Pressure [Left Arm] Blood Pressure Mean 125 Blood Pressure Mean [Left Arm] Blood Pressure Position [Left Arm] Pulse Oximetry 91 Oxygen Delivery Method Sepsis Recent Fever Within 48 Hours Sepsis New/Unexplained Change in Mental Status Sepsis Action Taken by Nursing VITALS: Vitals are noted on the nurse's note and reviewed by myself. Vital signs with elevated blood pressure GENERAL: Well-developed, well-nourished, white male who appears very uncomfortable on presentation. He is overall cooperative. HEAD: Normocephalic atraumatic. HEART: Regular rate and rhythm without murmurs gallops or rubs. LUNGS: Clear to auscultation bilaterally without wheezes, rales or rhonchi. No retractions or accessory muscle use. ABDOMEN: Positive normal bowel sounds x 4. Suprapubic tenderness noted. MUSCULOSKELETAL: No muscle atrophy, erythema, or edema noted. Full range of motion in all extremities. Course Administered Medications Ceftriaxone Sodium (Rocephin) 2,000 mg in 50 mls @ 100 mls/hr IV Q24H PETR Stop: 10/12/24 03:59 Last Infusion: 10/02/24 04:31 Dose: Infused Documented By: Admin: 10/02/24 04:01 Dose: 100 mls/hr Documented By: MICHEAL Medical Decision Making Differential Diagnosis Differential diagnosis: Etiologies such as catheter malfunction, urinary retention, shingles, pyelonephritis/UTI, renal colic, appendicitis, diverticulitis, mesenteric ischemia, torsion, aortic pathology, infections, inflammatory bowel disease, bowel obstruction, PUD, biliary pathology, as well as others were entertained. Laboratory Data 10/02/24 00:58 10/02/24 00:58 Lab Results 10/01/24 10/02/24 10/02/24 Range/Units 22:27 00:58 03:11 WBC 14.62 H (4.8-10.8) K/ul RBC 5.10 (4.70-6.10) M/uL Hgb 15.0 (14.0-18.0) g/dl Hct 44.8 (42.0-52.0) % MCV 87.8 (80.0-100.0) fL MCH 29.4 (25.0-34.0) pg MCHC 33.5 (32.0-36.0) g/dL RDW Std Deviation 43.5 (36.4-46.3) fL RDW Coeff of Anju 13.5 (11.5-14.5) % Plt Count 265 (130-400) K/uL MPV 9.3 L (9.4-12.4) fL Immature Gran % (Auto) 0.3 % Neut % (Auto) 89.3 % Lymph % (Auto) 5.7 % [place] % (Auto) 4.4 % Eos % (Auto) 0.1 % Baso % (Auto) 0.2 % Neut # (Auto) 13.05 H (1.40-6.50) K/uL Lymph # (Auto) 0.83 L (1.20-3.40) K/uL [place] # (Auto) 0.65 H (0.11-0.59) K/uL Eos # (Auto) 0.01 (0.00-0.50) K/uL Baso # (Auto) 0.03 (0.00-0.20) K/uL Immature Gran # (Auto) 0.05 (0.01-0.20) K/uL Sodium 136 (136-145) mmol/L Potassium 4.1 (3.5-5.1) mmol/L Chloride 102 (98-107) mmol/L Carbon Dioxide 25 (21-32) mmol/L Anion Gap 9 (3-11) BUN 14 (6-23) mg/dl Creatinine 1.08 (0.6-1.4) mg/dl Est Cr Clr Drug Dosing 56.6 ml/min eGFR 73.37 BUN/Creatinine Ratio 13.0 (10-20) Glucose 112 H (70-99(Fasting)) mg/dl Calcium 9.9 (8.6-10.3) mg/dl Magnesium 1.8 (1.7-2.4) mg/dl Total Bilirubin 0.9 (0.2-1.0) mg/dl AST 22 (13-39) U/L ALT 19 (7-52) U/L Alkaline Phosphatase 63 (34-104) U/L Troponin I High Sens 55.4 H* 57.1 H* (0-20) pg/ml Total Protein 7.9 (6.0-8.3) gm/dl Albumin 4.5 (3.4-5.0) gm/dl Globulin 3.4 (2.5-4.0) gm/dl Albumin/Globulin Ratio 1.3 (0.9-2) Urine Color Yellow Urine Appearance Cloudy A (Clear) Urine pH 5.5 (4.5-7.5) Ur Specific [place] 1.012 (1.000-1.030) Urine Protein 1+ H (Negative) Urine Glucose (UA) Negative (Negative) Urine Ketones Negative (Negative) Urine Blood 3+ H (Negative) Urine Nitrite Negative (Negative) Urine Bilirubin Negative (Negative) Urine Urobilinogen Negative (Negative) Ur Leukocyte Esterase 3+ H (Negative) Urine WBC (Auto) >50 H (0-5) /hpf Urine RBC (Auto) >20 H (0-2) /hpf U Hyaline Cast (Auto) 0-2 (0-2) /lpf U Epithel Cells (Auto) 0-2 (0-2) /hpf Urine Bacteria (Auto) None Seen (None Seen) [facility] Narrative Physical exam and history were performed. Nursing notes, EMR, and Medication List were personally reviewed. No social concerns were identified as barriers to patients care. Patient appears to have difficulty with his Doyle catheter, causing urinary retention. Bladder scan was performed and show 417 mL of urine. Nursing did attempt to flush the Doyle, and 50 cc was administered, however there was no outflow. Due to the significant discomfort the patient is experiencing, and him being in retention, we did remove and replace his Doyle. This did provide significant relief of his abdominal discomfort, and there seemed to be clot product on the end of the previous Doyle catheter balloon. Urine was sent to the lab but does not seem grossly effective. Patient was monitored in the ER after removal and replacement of the Doyle. He is persistently hypertensive and somewhat tachycardic. This did continue for over 1 hour, and patient was reevaluated multiple times. He is not having significant bladder pain, however he does have some intermittent spasm. Out of concern that he is hypertensive but does not seem to be improving, IV access was established and labs were obtained. An order was placed for continuous cardiac monitoring. The monitor shows a rate of 79 with normal sinus rhythm. Patient's blood work is as above and was reviewed. He does have a slightly elevated white count of 14,000. He does not have significant anemia or gross electrolyte imbalance. Initial troponin is POSITIVE at 55 and repeat is POSITIVE at 57. This does seem to be new for the patient and not a chronic finding. EKG is normal sinus rhythm at [address] abnormality, however this is unchanged when compared to EKG of 26 September 2023. Overall patient does not appear well for discharge home and escalation of care is necessary. His blood pressure has improved, but remains slightly high. Patient certainly could have another process such as hypertensive urgency triggered by his Doyle malfunction. Case was discussed with the on-call hospitalist team, who agreed to evaluate the patient here in the ER. Please see their dictation for further patient course, plan, and disposition. The chart was completed utilizing [employer] Speech Voice Recognition Software. Grammatical errors, random word insertions, pronoun errors, and incomplete sentences are an occasional consequence of this system due to software limitations, ambient noise, and hardware issues. Any formal questions or concerns about the content, text, or information contained within the body of this dictation should be directly addressed to the provider for clarification. Impression & Plan Hypertension, Elevated troponin, Malfunction of Doyle catheter Discharge Plan Visit Data Chief Complaint: Unable to Void Stated Complaint: CATHETER NOT WORKING, HIGH BP ED Provider: Sharath Colbert ED Midlevel Provider: Devon Jefferson Discharge Problem: Hypertension, Elevated troponin, Malfunction of Doyle catheter Forms Stand Alone Forms: My [facility] Prescriptions Prescriptions: No Action cholecalciferol (vitamin D3) 25 mcg (1,000 unit) capsule 25 mcg PO QAM Qty: 90 3RF nifedipine 60 mg tablet extended release 60 mg PO DAILY Qty: 90 3RF olmesartan 40 mg tablet 40 mg PO QAM Hold Instructions: Resume on 10/05/23. until seen by primary care spironolactone 25 mg tablet 25 mg PO BID coenzyme Q10 200 mg capsule 200 mg PO QAM tamsulosin 0.4 mg capsule 0.4 mg PO HS Qty: 90 3RF finasteride 5 mg tablet 5 mg PO DAILY Qty: 90 3RF pantoprazole 40 mg tablet,delayed release (DR/EC) 40 mg PO BID pravastatin 40 mg tablet 40 mg PO HS Hold Instructions: Resume on 10/05/23. hold until seen by primary care guaifenesin [Mucinex] 600 mg Tablet Extended Release 12hr 600 mg PO Q12 Qty: 14 0RF albuterol sulfate 90 mcg/actuation HFA aerosol inhaler 2 inh inhalation Q4H PRN (Reason: shortness of breath or wheezing) Qty: 6.7 0RF ezetimibe 10 mg tablet furosemide 20 mg Tablet 20 mg PO DAILY Referrals Referrals: Harish Retana DO [Primary Care Provider] -
[2024-10-01 23:01] LABS: Appearance Urine Cloudy (Clear); Bacteria Urine Automated None Seen (None Seen); Bilirubin Urine Negative (Negative); Blood Urine 3+ (Negative); Cast Urine Automated 0-2 /lpf (0-2); Color Urine Yellow; Epithelial Cell Urine Auto 0-2 /hpf (0-2); Glucose Urine UA Negative (Negative); Ketones Urine Negative (Negative); Leukocyte Esterase Urine 3+ (Negative); Nitrite Urine Negative (Negative); Protein Urine 1+ (Negative); RBC Urine Automated >20 /hpf (0-2); Specific Gravity Urine 1.012 (1.000-1.030); Urobilinogen Urine Negative (Negative); WBC Urine Automated >50 /hpf (0-5); pH Urine 5.5 (4.5-7.5)
[2024-10-02 01:39] LABS: Basophils # (auto) 0.03 K/uL (0.00-0.20); Basophils % (auto) 0.2 %; Eosinophils # (auto) 0.01 K/uL (0.00-0.50); Eosinophils % (auto) 0.1 %; Hematocrit (blood only) 44.8 % (42.0-52.0); Immature Granulocytes # (auto) 0.05 K/uL (0.01-0.20); Immature Granulocytes % (auto) 0.3 %; Lymphocytes # (auto) 0.83 K/uL (1.20-3.40); Lymphocytes % (auto) 5.7 %; Mean Corpuscular Hemoglobin 29.4 pg (25.0-34.0); Mean Corpuscular Hgb Conc 33.5 g/dL (32.0-36.0); Mean Corpuscular Volume 87.8 fL (80.0-100.0); Mean Platelet Volume 9.3 fL (9.4-12.4); Monocytes # (auto) 0.65 K/uL (0.11-0.59); Monocytes % (auto) 4.4 %; Neutrophils # (auto) 13.05 K/uL (1.40-6.50); Neutrophils % (auto) 89.3 %; Platelet Count 265 K/uL (130-400); RDW Coefficient of Variation 13.5 % (11.5-14.5); RDW Standard Deviation 43.5 fL (36.4-46.3); White Blood Count 14.62 K/ul (4.8-10.8)
[2024-10-02 01:55] LABS: Albumin Globulin Ratio 1.3 (0.9-2); Albumin Level 4.5 gm/dl (3.4-5.0); Bilirubin,Total 0.9 mg/dl (0.2-1.0); Calcium 9.9 mg/dl (8.6-10.3); Creatinine Clr Calc Pharmacy 56.6 ml/min; Globulin 3.4 gm/dl (2.5-4.0); Magnesium 1.8 mg/dl (1.7-2.4); Potassium 4.1 mmol/L (3.5-5.1); Total Protein 7.9 gm/dl (6.0-8.3)
[2024-10-02 02:20] LABS: Troponin I High Sensitivity 55.4 pg/ml (0-20)
--- NOTE | 2024-10-02 03:15 | History & Physical Report ---
Date of Service October 02, 2024 Assessment & Plan (1) Elevated troponin: (2) UTI (urinary tract infection): (3) BPH w urinary obs/LUTS: (4) Hypertension: Plan Patient is a 69-year-old male with a past medical history of BPH , CKD stage III, aortic stenosis, hypertension, GERD. He presented to the ED due to Doyle catheter complications and 10/10 pain. He was found to have a blood pressure of 220/108 and an elevated troponin of 55.4. He is being admitted for cardiac monitoring and UTI treatment. #elevated troponin Suspect 2/2 hypertension/pain Likely demand ischemia Trop 55.4 in ED; repeat ordered on admission, will trend every 6 hours Troponin recently 11.9 09/26/2024 Patient denies any chest pain EKG showing NSR; EKG with chest pain as needed Most recent echo in 2021 showed grade 1 diastolic dysfunction, EF 65%, no wall abnormalities, mild LVH, mild/mod aortic stenosis BROOKS risk score 2 echo ordered Monitor on telemetry #UTI/BPH Chronic Doyle catheter use with complications upon arrival Catheter replaced in ED Catheter care QS UA appears infectious with 1+ protein, 3+ blood, 3 place leukocyte esterase,> 50 WBC,> 20RBC - No bacteria seen leukocytosis with white count of 14.62 on admission low concern for sepsis given afebrile, VSS will cover for UTI given symptomatic with Rocephin No history of urine cultures on file, not immunocompromised Follow urine cultures urology consulted continue tamsulosin and finasteride #HTN Suspect 2/2 pain Patient denies pain on admission, however does report pain when exerting self Tylenol as needed for pain Continue spironolactone, olmesartan, furosemide, and nifedipine Defer further BP control as anticipate to improve with Doyle replacement and pain control Chronic stable diagnoses: GERDcontinue home PPI HLD - continue statin and Zetia VTE ppx: SCDs Diet: heart healthy Dispo: med/telemetry possible discharge home afternoon 10/02 after urology eval and echocardiogram Admission and Anticipated Discharge Date Admission Date: 10/02/2024 History of Present Illness Chief Complaint: Unable to void Primary Care Provider: Harish Retana DO patient is a 69-year-old male with a past medical history of BPH , CKD stage III, aortic stenosis, hypertension, GERD. He presented to the ED due to Doyle catheter complications and 10/10 pain. He was found to have a blood pressure of 220/108 and an elevated troponin of 55.4. He is being admitted for cardiac monitoring and UTI treatment. Patient seen at bedside with his son present. He stated this evening his Doyle catheter had a decreased flow and was not working. He also had 10 out of 10 pain. He stated his Doyle catheter was just changed 2 weeks ago, he follows with Dr. Qiu urology. He has had a chronic Doyle in since June due to BPH and recently had a cystoscopy approximately 2 weeks ago that he stated showed some bladder wall thickening. Today after ER change Doyle catheter, his pain is greatly improved but he now has hematuria. He stated he does have some pain whenever he gets up and moving around which resulted in blood pressure remaining elevated. Patient also endorses feeling feverish today. He denies any flulike symptoms, runny nose, sore throat, congestion, cough. Regarding his elevated troponin, patient denies any chest pain. He denies any chest pain on exertion at home. He stated that he sometimes gets tired and lightheaded when he is up and moving around and bends over which has been ongoing for several months. He denies any dyspnea on exertion. He denies any history of MIs or stent placement. He denies any family history of [place]. He does not use nicotine products or drink alcohol. He denies history of DM. Patient did not take his evening medications. He wishes to be full code. Allergies Allergy/AdvReac Type Severity Reaction Status Date / Time No Known Allergies Allergy Verified 07/29/24 08:27 Home Medications Medication Instructions Recorded Confirmed Type olmesartan 40 mg tablet 40 mg PO QAM 03/04/21 07/29/24 History spironolactone 25 mg tablet 25 mg PO BID 03/04/21 10/02/24 History coenzyme Q10 200 mg capsule 200 mg PO QAM 11/23/21 07/29/24 History nifedipine 60 mg tablet,extended 60 mg PO DAILY #90 tabs 01/13/23 07/29/24 Rx release cholecalciferol (vitamin D3) 25 25 mcg PO QAM #90 caps 02/21/23 07/29/24 Rx mcg (1,000 unit) capsule pantoprazole 40 mg tablet,delayed 40 mg PO BID 09/24/23 07/29/24 History release pravastatin 40 mg tablet 40 mg PO HS 09/26/23 07/29/24 History albuterol sulfate 90 mcg/actuation 2 inh inhalation Q4H PRN shortness 09/30/23 07/29/24 Rx aerosol inhaler of breath or wheezing #6.7 grams guaifenesin 600 mg tablet, 600 mg PO Q12 #14 tabs 09/30/23 07/29/24 Rx extended release 12 hr (Mucinex) finasteride 5 mg tablet 5 mg PO DAILY #90 tabs 09/16/24 10/02/24 Rx tamsulosin 0.4 mg capsule 0.4 mg PO HS #90 caps 09/16/24 10/02/24 Rx ezetimibe 10 mg tablet mg 10/02/24 History furosemide 20 mg tablet 20 mg PO DAILY 10/02/24 History Past Med/Surg History Problem List (Updated 10/02/24 @ 05:35 by Devon Jefferson PA-C) Malfunction of Doyle catheter (Acute) Elevated troponin (Acute) Hypertension (Acute) UTI (urinary tract infection) Elevated troponin BPH w urinary obs/LUTS Acute urinary retention (Acute) Transaminitis High anion gap metabolic acidosis Sleep apnea hasn't used CPAP for year Acute kidney injury superimposed on CKD Reactive airway disease RSV (respiratory syncytial virus infection) (Acute) Chest congestion (Acute) Cough (Acute) Vitamin D deficiency Dysfunctional voiding of urine Vitreous hemorrhage, right eye Hypertension Chronic kidney disease, stage III (moderate) (Acute) Hyponatremia (Acute) Tricuspid regurgitation Aortic stenosis, moderate KIM 1.4 cm2 01/06/20 - follows PSH - 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 Overweight (BMI 25.0-29.9) Medical History Constipation Visual impairment "BLACK HOLE RT EYE" Hypertension Surgical History History of cataract surgery right Hx of eye surgery right eye black hole Hx of vitrectomy left History of tooth extraction Family History Other No significant family history Social History Smoking Status: Former smoker Second Hand Exposure: No; Do You Dip or Chew Tobacco: No; Hx Alcohol Use: No Hx Substance Use: No Preferred Language: Angolan Communication Ability: Effective Communication Ability Comment: some visual impairment Visual Impairment: Limited Hearing Ability: Normal 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 Non-toxic appearing. HEENT- EOMI, mucous membranes moist. Hearing grossly intact. Heart-normal S1 and S2. No murmurs, rubs or gallops. Lungs-clear bilaterally, no respiratory distress, no accessory muscle use. Abdomen-normal bowel sounds and soft. No ascites noted. Non-tender. Extremities- no clubbing, cyanosis, or edema. Rheumatologic-normal range of motion. Psychiatric-normal affect. Results & Data Results & Data Vital Signs (Past 12 Hours) Vital Signs Temp Pulse Pulse Resp BP BP Pulse Ox 10/02/24 02:47 75 19 171/100 H 93 10/02/24 01:16 90 26 H 90 10/02/24 01:16 90 27 H 198/108 H 90 10/02/24 01:12 92 H 10/01/24 21:52 36.4 C L 136 H 20 220/108 H 94 O2 Del Method 10/02/24 02:47 Room Air 10/02/24 01:16 Room Air 10/02/24 01:16 Room Air 10/02/24 01:12 10/01/24 21:52 Room Air Laboratory Results reviewed CBC, CMP, mag, troponin, UA Diagnostic Findings none Medications Administered EDnone AdmissionRocephin 2G IV ECG Additional Comments: NSR, no ischemic changes Code Status & VTE Plan Code Status full code VTE Prophylaxis Plan VTE Prophylaxis will be ordered: Yes Supervising Physician Co-Signing Physician Notes Attending addendum: I have physically seen this patient, have supervised the JAYSON's activities, and agree with the H&P unless as otherwise noted. Assessment and Plan: The patient is a 69-year-old male with a past medical history including BPH with LUTS, CKD stage III, aortic stenosis, hypertension, and GERD. He reports Doyle catheter was placed about 2 weeks ago due to issues with urinary retention. Earlier this evening, Doyle catheter became clogged, he presented to the ED for assessment, and Doyle catheter was changed at that time. He initially reported the pain of 10/10, which at this time reports is no longer present. [facility] and dysfunctionality there. He is also noted to have an increased troponin of 55.4, and blood pressure elevation to 170s over 100s, with increased heart rate, as opposed to outpatient regimen of all vasodilators. Elevated troponin/hypertension-- The patient will be admitted to telemetry for serial cardiac enzymes, serial EKG's, cardiac rhythm monitoring and a 2-D echocardiogram with Dopplers. Troponin 55.4, with follow-up pending Will place on metoprolol succinate 25 mg p.o. now, and every morning Continue olmesartan and spironolactone, but will hold nifedipine Unclear forward reason for change in physiology at this point, or whether the issue is as the patient did not have adequate control in the outpatient setting Follow response to regimen and adjust dosages of medications as needed Doyle catheter complication/BPH with LUTS- Continue Doyle catheter Follow urine culture and sensitivity Empiric ceftriaxone 2 g IV daily Consult urology regarding ongoing management of Doyle Continue tamsulosin and finasteride which PG Care Time/CCT Total # of Minutes Spent Total Time Spent with Patient: Total time spent is greater than 50% in coordination of care (as documented) at patient's floor/unit and/or counseling patient: Coding Level of Care Code 73065 INT INP/OBS CARE 3/75MIN Diagnoses Elevated troponin R79.89 UTI (urinary tract infection) N39.0 BPH w urinary obs/LUTS N40.1; N13.8 Hypertension I10
[2024-10-02] MEDS: cefTRIAXone SODIUM 2,000 MG/50 ML BAG IV SCH (04:01)
[2024-10-02] MEDS: METOPROLOL SUCC 25MG EXT REL TAB PO STA ×2 (06:00→13:16)
[2024-10-02] MEDS ORDERED: MELATONIN 3 MG TAB PO PRN (06:19)
[2024-10-02] MEDS ORDERED: ONDANSETRON INJ 2 MG/ML 2 ML VIAL IV PRN (06:19)
[2024-10-02] MEDS ORDERED: ACETAMINOPHEN 325 MG TAB PO PRN (06:19)
[2024-10-02] MEDS ORDERED: DOCUSATE SODIUM 100 MG CAP PO PRN (06:19)
[2024-10-02] MEDS: ACETAMINOPHEN 325 MG TAB PO STA (06:23)
[2024-10-02] MEDS: EZETIMIBE 10 MG TAB PO SCH (08:05)
[2024-10-02] MEDS: PANTOprazole 40 MG TAB PO SCH (08:06)
[2024-10-02] MEDS: LOSARTAN POTASSIUM 50 MG TAB PO SCH (08:06)
[2024-10-02] MEDS: FUROSEMIDE 20 MG TAB PO SCH (08:06)
[2024-10-02] MEDS: FINASTERIDE 5 MG TAB PO SCH (08:06)
[2024-10-02] MEDS: SPIRONOLACTONE 25 MG TAB PO SCH (08:06)
[2024-10-02] MEDS: NIFEdipine EXTENDED REL 30 MG TABCR PO SCH (09:58)
[2024-10-02 10:48] VITALS: RESP 18
[2024-10-02 12:08] VITALS: TEMP 98.4
--- NOTE | 2024-10-02 13:02 | XCELERA ---
[id number]
[2024-10-02 14:22] VITALS: BP 160/84; O2SAT 91
--- NOTE | 2024-10-02 14:28 | Discharge Summary ---
Discharge Summary Date of Service October 02, 2024 Principal Dx & Hospital Course #1 = Principal Diagnosis (1) Elevated troponin: (2) UTI (urinary tract infection): (3) BPH w urinary obs/LUTS: (4) Hypertension: Plan #elevated troponin Patient is a 69-year-old male with a past medical history of BPH , CKD stage III, aortic stenosis, hypertension, GERD. He presented to the ED due to Gooden catheter complications and 10/10 pain. He was found to have a blood pressure of 220/108 and an elevated troponin of 55.4. After catheter exchange in the ED, his pain has resolved. Gooden with clear urine, patient feels that is draining appropriately. Troponin peaked at 55, no chest pain. EKG without ST elevation. echo showed EF 55 to 60%, no regional wall motion abnormalities. Suspect elevated troponin was related to hypertension and pain, demand ischemia. #UTI/BPH Catheter replaced in ED, Working properly since. UA not overly convincing for UTI however given leukocytosis antibiotics continued at discharge. Urine culture pending if no growth can stop antibiotics continue tamsulosin and finasteride. routine urology follow-up #HTN Continue spironolactone, olmesartan, furosemide, and nifedipine Still with elevations, metoprolol succinate 25 mg added with good control. This was prescribed for him at discharge, recommended to take his blood pressure once a day and bring a value to his PCP appointment for further titration GERDcontinue home PPI HLD - continue statin and Zetia dispo: Discharged home today Notes For Next Care Provider Medication Changes From Visit metoprolol succinate 25 mg once daily Admission HPI Per Admitting Provider patient is a 69-year-old male with a past medical history of BPH , CKD stage III, aortic stenosis, hypertension, GERD. He presented to the ED due to Gooden catheter complications and 10/10 pain. He was found to have a blood pressure of 220/108 and an elevated troponin of 55.4. He is being admitted for cardiac monitoring and UTI treatment. Patient seen at bedside with his son present. He stated this evening his Gooden catheter had a decreased flow and was not working. He also had 10 out of 10 pain. He stated his Gooden catheter was just changed 2 weeks ago, he follows with Dr. Qiu urology. He has had a chronic Gooden in since June due to BPH and recently had a cystoscopy approximately 2 weeks ago that he stated showed some bladder wall thickening. Today after ER change Gooden catheter, his pain is greatly improved but he now has hematuria. He stated he does have some pain whenever he gets up and moving around which resulted in blood pressure remaining elevated. Patient also endorses feeling feverish today. He denies any flulike symptoms, runny nose, sore throat, congestion, cough. Regarding his elevated troponin, patient denies any chest pain. He denies any chest pain on exertion at home. He stated that he sometimes gets tired and lightheaded when he is up and moving around and bends over which has been ongoing for several months. He denies any dyspnea on exertion. He denies any history of MIs or stent placement. He denies any family history of [place]. He does not use nicotine products or drink alcohol. He denies history of DM. Patient did not take his evening medications. He wishes to be full code. Discharge Exam General: NAD, VS as above Resp: normal respiratory effort, lungs clear to auscultation CV: RRR, no murmur, Abd: normal bowel sounds, non tender, no hepatosplenomegaly Extremities: Moves all extremities, no edema : Gooden leg bag draining clear urine Neuro: A&O x3, Discharge Plan Discharge Items Patient Disposition: Home - Self-Care Reason For Visit: ELEVATED TROP Discharge Diagnosis: Catheter Malfunction Activity: Resume your previous activity Non-emergency contact: Primary Care Provider Call non-emergency contact if: you have any medication questions, your symptoms worsen, your pain is not controlled and your temperature is above 101 Follow-up/Referrals: Harish Retana, [Primary Care Provider] - Diet: Heart Healthy Addtl Attending Provider Instructions: Mr. Mcmahon, You were hospitalized after a catheter malfunction at home. You catheter was exchanged in the ED and has been working properly since. You will need continued follow up with urology, they will continue to change the catheter every month and will eventually attempt to remove the catheter to do a voiding trial. While you were here, your blood pressure was significantly elevated. This led us to do a workup of your heart. The Ultrasound of your heart did not show any acute changes. Your heart enzyme level was down trending prior to discharge. You did still have some significantly elevated blood pressures while you were, for this reason we started you on a new blood pressure medication called metoprolol. Take this once a day. Please continue to monitor your blood pressure at home. Recommend taking this once a day and keeping a record of these measurements and taking them to your PCP at your follow appointment. The dose of this medication may need to be increased by your PCP. There was also concerns for a UTI. While not overly infectious, we have kept you on antibiotics just incase. These were sent to the pharmacy, take the first dose tonight. Please follow up with your PCP within one week. Activity: You can do normal everyday activities as your body allows. Take rest breaks if you feel tired. Do not overexert. Stop activity if you have pain, shortness of breath or feel dizzy. Follow-up appointments: Make an appointment with your primary care physician within one week of discharge. A copy of this summary will be sent to them. Every time you see your primary care physician, or any other doctor, bring your medication list, and a list of questions. CONTACT YOUR PRIMARY CARE PROVIDER if you experience any of the following: Shortness of breath or difficulty breathing Fevers or chills Feeling tired with normal activity or experiencing dizziness or fainting Difficulty following your treatment plan, or difficulty taking medications CALL 911 OR GO TO THE EMERGENCY DEPARTMENT if you experience any of the following: Severe abdominal pain or nausea/vomiting Severe chest pain, or chest pain that radiates (moves) to your jaw or arm Sudden, severe shortness of breath or difficulty breathing Thank you for allowing us to participate in your care. YRIS Vaughn Pending Studies at Discharge: Yes (urine culture ) Stand-Alone Forms: [facility], Smoking Cessation Medications and DC Order Prescriptions: New metoprolol succinate 25 mg Tablet Extended Release 24 Hr 25 mg PO QAM Qty: 30 0RF cephalexin 500 mg capsule 500 mg PO BID 7 Days Qty: 14 0RF Continued cholecalciferol (vitamin D3) 25 mcg (1,000 unit) capsule 25 mcg PO QAM Qty: 90 3RF nifedipine 60 mg tablet extended release 60 mg PO DAILY Qty: 90 3RF olmesartan 40 mg tablet 40 mg PO QAM Hold Instructions: Resume on 10/05/23. until seen by primary care spironolactone 25 mg tablet 25 mg PO BID coenzyme Q10 200 mg capsule 200 mg PO QAM tamsulosin 0.4 mg capsule 0.4 mg PO HS Qty: 90 3RF finasteride 5 mg tablet 5 mg PO DAILY Qty: 90 3RF pantoprazole 40 mg tablet,delayed release (DR/EC) 40 mg PO BID pravastatin 40 mg tablet 40 mg PO HS Hold Instructions: Resume on 10/05/23. hold until seen by primary care albuterol sulfate 90 mcg/actuation HFA aerosol inhaler 2 inh inhalation Q4H PRN (Reason: shortness of breath or wheezing) Qty: 6.7 0RF ezetimibe 10 mg tablet furosemide 20 mg Tablet 20 mg PO DAILY Discontinued guaifenesin [Mucinex] 600 mg Tablet Extended Release 12hr 600 mg PO Q12 Qty: 14 0RF Discharge Orders: Discharge Order (Routine); Ordered 10/02/24 Ordered By: Johana Vásquez/Other Patient Handouts: Hypertension Dc Admission Data Admit Date/Time: 10/02/24 03:39 Attending Provider: Percy Stanton Admit Provider: Cristo Velázquez Primary Care Provider: Harish Retana Other Providers: Cristo Velázquez Other Interventions: Discharge Summary Assessment (RN) Last Done: 10/02/24 16:12 Hospital Stay Data Consultations 10/02/24 03:14 ED Decision to Admit Stat Pending Results Patient Have Any Pending Studies at Discharge: Yes (urine culture ) Discharge Instructions Given to Patient (Per Discharging Provider) Mr. Mcmahon, Jaydon were hospitalized after a catheter malfunction at home. You catheter was exchanged in the ED and has been working properly since. You will need continued follow up with urology, they will continue to change the catheter every month and will eventually attempt to remove the catheter to do a voiding trial. While you were here, your blood pressure was significantly elevated. This led us to do a workup of your heart. The Ultrasound of your heart did not show any acute changes. Your heart enzyme level was down trending prior to discharge. You did still have some significantly elevated blood pressures while you were, for this reason we started you on a new blood pressure medication called metoprolol. Take this once a day. Please continue to monitor your blood pressure at home. Recommend taking this once a day and keeping a record of these measurements and taking them to your PCP at your follow appointment. The dose of this medication may need to be increased by your PCP. There was also concerns for a UTI. While not overly infectious, we have kept you on antibiotics just incase. These were sent to the pharmacy, take the first dose tonight. Please follow up with your PCP within one week. Activity: You can do normal everyday activities as your body allows. Take rest breaks if you feel tired. Do not overexert. Stop activity if you have pain, shortness of breath or feel dizzy. Follow-up appointments: Make an appointment with your primary care physician within one week of discharge. A copy of this summary will be sent to them. Every time you see your primary care physician, or any other doctor, bring your medication list, and a list of questions. CONTACT YOUR PRIMARY CARE PROVIDER if you experience any of the following: Shortness of breath or difficulty breathing Fevers or chills Feeling tired with normal activity or experiencing dizziness or fainting Difficulty following your treatment plan, or difficulty taking medications CALL 911 OR GO TO THE EMERGENCY DEPARTMENT if you experience any of the following: Severe abdominal pain or nausea/vomiting Severe chest pain, or chest pain that radiates (moves) to your jaw or arm Sudden, severe shortness of breath or difficulty breathing Thank you for allowing us to participate in your care. YRIS Vaughn Supervising Physician Co-Signing Physician Notes Attending Attestation and Discharge Note: Chart reviewed, care plan d/w JULIAN Barron. I agree w/ the ambrose components of her discharge documentation. Of note - I did not perform a bedside visit or perform a personal physical exam on day of discharge. 69yo male with BPH, CKD stage III, aortic stenosis, hypertension, chronic gooden catheter usage for 2 months. He came to the ER due to concerns for urinary retention. Gooden last exchanged 2 weeks ago through the urology office. He began having decreased urinary output the evening of presentation, then the catheter stopped working. He had severe pain upon presentation to the ER, rating his pain 10/10. He was tachycardic and markedly hypertensive at time of presentation. Gooden was exchanged in the ER and his pain improved following such. The new gooden was draining urine appropriately. Urine cx was sent to rule out UTI. He was discharged home on PO keflex pending the culture. Although his BPs improved following resolution of his pain, his BPs still remained high and metoprolol was added. He was d/c home on metoprolol succinate 25mg daily in addition to his other BP meds. Percy Stanton MD Total Time Total Time Spent Total Time Spent (In Minutes): Time spent day of discharge 40 minutes including direct patient care, medication reconciliation, documentation, review of labs and images, and coordination of care. Coding Level of Care Code None Diagnoses Elevated troponin R79.89 UTI (urinary tract infection) N39.0 BPH w urinary obs/LUTS N40.1; N13.8 Hypertension I10
[2024-10-02 16:52] VITALS: PULSE 91
[2024-10-02] MEDS ORDERED: TAMSULOSIN HCL 0.4 MG CAP PO SCH (21:00)
[2024-10-02] MEDS ORDERED: PRAVASTATIN SOD 40 MG TAB PO SCH (21:00)
[2024-10-03] MEDS ORDERED: METOPROLOL SUCC 25MG EXT REL TAB PO SCH (09:00)
--- NOTE | 2024-10-04 23:20 | Electrocardiogram Report ---
Test Reason : Blood Pressure : */* mmHG Vent. Rate : 92 BPM Atrial Rate : 92 BPM P-R Int : 124 ms QRS Dur : 82 ms QT Int : 352 ms P-R-T Axes : 49 -15 24 degrees QTcB Int : 435 ms Normal sinus rhythm with sinus arrhythmia Possible Left atrial enlargement Nonspecific ST abnormality Abnormal ECG When compared with ECG of 26-Sep-2023 11:09, No significant change was found Confirmed by Missael Anton ([id number]) on 10/04/2024 11:20:18 PM Referred By: REFERRED SELF Confirmed By: Missael Anton
== END 2024-10-02 17:30 | disposition home or self-care (01) ==
LOC: SUATTDRO → EDINP 21:41 → ED 21:41 → SUATTDRO 10-02 03:39 → 2W 10-02 06:19
DX: T83.098A Other mechanical complication of other urinary catheter, initial encounter; N40.1 Benign prostatic hyperplasia with lower urinary tract symptoms; Z79.899 Other long term (current) drug therapy; N13.8 Other obstructive and reflux uropathy; R79.89 Other specified abnormal findings of blood chemistry; I12.9 Hypertensive chronic kidney disease with stage 1 through stage 4 chronic kidney disease, or unspecified chronic kidney disease; I35.0 Nonrheumatic aortic (valve) stenosis; N39.0 Urinary tract infection, site not specified; N18.30 Chronic kidney disease, stage 3 unspecified; Z87.891 Personal history of nicotine dependence